=== PATIENT | male | born 1940 | race Caucasian/White ===

== ENCOUNTER 2024-11-04 09:57 | Inpatient (IN) | payer OTHER, MEDICARE, MEDICAID ==
[~2024-11-04] VITALS: Ht 182.9 cm; Wt 102.3 kg
[2024-11-04] VITALS (10 sets, daily range): BP systolic 119–140; BP diastolic 69–75; PULSE 82–101; RESP 17–20; TEMP 97.5–98.1; O2SAT 91–95
[~2024-11-04 09:57] MED LIST: ALBU6.7H14 INH; FLO0.4C PO; MOME13HF11 INH
--- NOTE | 2024-11-04 10:09 | ELECTROCARDIOGRAPH REPORT ---
[facility] Test Date: 2024-11-04 Test Time: 10:04:39 Pat Name: JOHN MARES Department: EMERGENCY ROOM Patient ID: [facility]-[id number] Room: [place] [address] Gender: M Channel Process Plant Operator: KH : [id number] Requested By: GLENIS PATEL Order Number: [id number] Reading MD: Dr. Doug De La Cruz Measurements Intervals Clyde Rate: 86 P: -7 WA: 223 QRS: 33 QRSD: 142 T: 29 QT: 376 QTc: 450 Interpretive Statements Sinus rhythm Prolonged WA interval Right bundle branch block Abnormal inferior Q waves Baseline wander in lead(s) V3 Electronically Signed On 11-13-2024 18:43:[address] Doug De La Cruz Please click the below link to view image of tracing.
[2024-11-04] MEDS ORDERED: furosemide 10 MG/1 ML 10ml inj IV ONE (10:15)
--- NOTE | 2024-11-04 10:15 | Physician Documentation ---
History of Present Illness ~ Stated Complaint: SOB Time Seen by MD: 10:11 Primary Medical Doctor: [place] THIS VERY PLEASANT 83-YEAR-OLD MALE WHO WAS AT HIS 1ST EV[address] SEGOVIA THIS MORNING WAS SENT HERE DUE TO INCREASING SHORTNESS OF BREATH AND LOWER EXTREMITY EDEMA. HAS NOT BEEN TREATED FOR CONGESTIVE HEART FAILURE PREVIOUSLY. DR. SARGENT ORDERED ECHOCARDIOGRAM WELL HOWEVER BASED ON PATIENT'S CURRENT COMPLAINT AND PRESENTATION HE RECOMMENDED THEY COME TO THE ER FOR EVALUATION Day of Onset: Nov 04, 2024 Medication Reconciliation Allergies: Coded Allergies: No Known Allergies (Unverified , 05/14/22) Scheduled Albuterol Sulfate (Proventil Hfa), 2 PUFFS INH Q6H Mometasone/Formoterol (Dulera 200 Mcg/5 Mcg Inhaler), 2 PUFFS INH Q12H, (Reported) Tamsulosin Hcl (Flomax), 2 CAP PO HS, (Reported) Past Medical History Patient History: Patient reports no known family medical history. Review of Systems All Other Systems at this time: Reviewed and Negative ROS As stated above in the HPI, otherwise all systems are reviewed and negative. Physical Exam Physical Exam General: Alert, no apparent distress. Respiratory: DIMINISHED WITH CRACKLES BILATERAL Chest: No accessory muscle use. Cardiovascular: Regular rate and rhythm, no murmurs. Extremities: 3+ PITTING EDEMA le BL Neurologic: Oriented x4. Psychiatric: Normal mood and affect. Skin: Normal color, warm and dry. No edema, no ecchymosis. Progress Results/Orders Results/Orders Completed Orders - MAURY CHAMPAGNE SERVICE LINE LAYER Furosemide Inj (Lasix Inj) (11/04/24 10:15) Furosemide 20mg Inj (Lasix Inj) (11/04/24 10:15) Vital Signs 11/04/24 10:10 Temp 97.6 Pulse 87 Resp 22 B/P (MAP) 154/75 Pulse Ox 95 O2 Flow Rate 0 Laboratory Tests Test 11/04/24 10:12 CBC Comment Chemistry Comments Medical Decision Making Findings 83-YEAR-OLD MALE CLEARLY PRESENTS WITH ALL THE CLINICAL INDICATIONS OF CHF EXACERBATION AND FLUID BUILDUP ALONG WITH A LIKELY ADVANCED HEART FAILURE. X-RAY IS NOTABLE FOR PULMONARY VASCULAR CONGESTION PER MY [facility] ADMISSION FOR DIURESIS, ECHOCARDIOGRAM AND FURTHER CARDIOLOGY EVALUATE Differential Dx:Considerations: Include: anxiety, asthma, bronchitis, cardiogenic shock, CHF, COPD, dysrhythmia, hypertension, accelerated, hypertension, essential, hypertension, malignant, hyperventilation, h yponatremia, myocardial infarction, panic attack, pneumonia, pneumonitis, pneumothorax, PSVT, pulmonary embolism, respiratory distress, respiratory failure, sinusitis, upper resp. infection, other Departure Disposition: ADMITTED INPATIENT Impression: Primary Impression: Acute on chronic systolic heart failure Referrals: NO PRIMARY CARE PROVIDER (PCP) Signature Scribe Signature: D Attestation: Scribed for Maury Champagne Compound Finisher by Maury Walker NP . 11/04/24 10:31 MAURY CHAMPAGNE NP Nov 04, 2024 10:15
[2024-11-04 10:27] LABS: BASOPHILS % (AUTO) 0.6 % (0-1); EOSINOPHILS # (AUTO) 0.1 X10'3 (0-0.9); EOSINOPHILS % (AUTO) 0.7 % (0-6); HEMATOCRIT 40.8 % (42.0-52.0); HEMOGLOBIN 13.9 g/dl (14.0-17.9); LYMPHOCYTES # (AUTO) 0.5 X10'3 (1.1-4.8); LYMPHOCYTES % (AUTO) 5.9 % (21-51); MEAN CORPUSCULAR HEMOGLOBIN 36.1 PG (27.0-31.0); MEAN CORPUSCULAR HGB CONC 34.1 g/dL (33.0-36.5); MEAN CORPUSCULAR VOLUME 106.1 FL (78-98); MEAN PLATELET VOLUME 6.8 FL (7.4-10.4); MONOCYTES # (AUTO) 0.6 X10'3 (0-0.9); MONOCYTES % (AUTO) 8.2 % (2-12); NEUTROPHILS # (AUTO) 6.6 X10'3 (1.8-7.7); NEUTROPHILS % (AUTO) 84.6 % (42-75); PLATELET COUNT 183 X10'3 (140-440); RED BLOOD COUNT 3.84 X10'6 (4.70-6.10); RED CELL DISTRIBUTION WIDTH 15.3 % (11.5-14.5); WHITE BLOOD COUNT 7.8 X10'3 (4.5-11.0)
--- NOTE | 2024-11-04 10:37 | RADIOLOGY REPORT ---
CHEST RADIOGRAPH Indication: sob with cough and congestion Technique: Frontal and lateral view of the chest was obtained Comparison: None FINDINGS: Lines and Tubes: None Lungs: Clear Pleura: No effusion. No pneumothorax. Bilateral pleural calcifications. Cardiomediastinal contours: Unremarkable Bones: Unremarkable IMPRESSION: No evidence of acute disease.
[2024-11-04] MEDS: furosemide 20 MG/2 ML vial IV ONE (10:39)
[2024-11-04 10:49] LABS: ALBUMIN 3.6 G/DL (3.4-5.0); ANION GAP 10 (8-16); BLOOD UREA NITROGEN 10 MG/DL (7-18); BUN/CREATININE RATIO 10.3 (10.0-20.0); CALCIUM 8.8 MG/DL (8.5-10.1); CHLORIDE 101 MMOL/L (99-107); CREATININE 0.97 MG/DL (0.60-1.10); GLUCOSE 116 MG/DL (70-104); POTASSIUM 4.5 MMOL/L (3.5-5.1); SODIUM 141 MMOL/L (135-145); eCRCL 64 ML/MIN; eGFR 74 ML/MIN
[2024-11-04] MEDS ORDERED: acetaminophen 325mg tablet PO PRN ×2 (10:50)
[2024-11-04] MEDS ORDERED: potassium Cl 20 mEq SR tablet PO PRN ×2 (10:50)
[2024-11-04] MEDS ORDERED: magnesium Cl slow-release 64mg tablet PO PRN (10:50)
[2024-11-04] MEDS ORDERED: potassium Cl 40MEQ/1/2NS 520ml 520 ML IV PRN (10:50)
[2024-11-04] MEDS ORDERED: magnesium sulf-water 2g/50mL 50 ML IV PRN (10:50)
[2024-11-04] MEDS ORDERED: magnesium sulf-water 4G/100mL 100 ML IV PRN (10:50)
[2024-11-04] MEDS ORDERED: CYAN500T71 PO (10:54)
[2024-11-04] MEDS ORDERED: UMEC1DIS INH (10:54)
[2024-11-04] MEDS ORDERED: FLUT1BLS14 INH (10:54)
[2024-11-04] MEDS ORDERED: FURO-150 PO (10:54)
[2024-11-04 11:55] LABS: PRO BRAIN NATRIURETIC PEPTIDE 99 PG/ML (0-450)
--- NOTE | 2024-11-04 11:56 | RADIOLOGY REPORT ---
Procedure: CT CT CHEST Reason for study/Clinical History: SOB Comparison Study: CT CHEST on DOS: 10/17/22 TECHNIQUE: Multidetector CT of the chest was performed from the lung apices to the upper abdomen with out the use of intravenous contract. Axial, coronal and sagittal multiplanar reformats were performed . Radiation Dose Information: CT Dose: CTDI volume is 18 mGy. Dose-length product is 714 mGy*cm The dose indicators for CT are the volume Computed Tomography (CT) Dose Index (CTDIvol) and the Dose Length Product (DLP), and are measured in units of mGy and mGy-cm, respectively. These indicators are not patient dose, but values generated from the CT scanner acquisition factors. The report includes radiation exposure data for exposures received during this examination. FINDINGS: Lower neck: Unremarkable. Lungs: No focal consolidation. No suspicious pulmonary nodule. Moderate centrilobular emphysema. Heart/Vascular Structures: Cardiomegaly. Coronary artery calcifications. Vascular calcifications of t he aorta. Lymph Nodes: No adenopathy Pleura: No pleural effusion or significant pneumothorax. Pleural calcifications are present which can be seen in prior asbestos exposure. Musculoskeletal: No acute osseous abnormality. Soft tissues: Normal. Upper abdomen: Subtle nodular contours to the liver may represent early changes of hepatic cirrhosis. IMPRESSION: No acute intrathoracic abnormality. Radiation optimization: All CT scans at this facility use at least one of these dose optimization ana hniques: automated exposure control mA and/or kV adjustment per patient size (includes targeted exam s where dose is matched to clinical indication) or iterative reconstruction.
--- NOTE | 2024-11-04 12:54 | HISTORY AND PHYSICAL-Residence ---
History & Physical Providers to CC Resident Creating Document: SHANNAN HARRIS, RES ~ History of Present Illness Primary Medical Doctor: [place]. Television Station Manager: Dr. De La Garza. Marketing Information Coordinator Dr. Up. Reason for Admit\Complaint: Shortness of breath History of Present Illness PCP: [place]. Television Station Manager: Dr. De La Garza. Marketing Information Coordinator Dr. Up. 83-year-old male patient with past medical history of BPH, COPD, basal cell carcinoma, came to the hospital with chief complaint of shortness of breaths. As per patient he has been experiencing shortness of breath for a few years, getting worse during the last two months and also noticed in worse lower extremities swelling. He normally is home independent, lately because of his shortness of breath he was able chest walk for 20 ft before getting short of breath. Associated to these symptom the patient also endorses dry cough which also has been getting worse during the last the patient currently denies any chest pain, palpitations, urinary or intestinal symptoms. Allergies: Coded Allergies: No Known Allergies (Unverified , 05/14/22) Home Medications Home Medications Active Proventil Hfa (Albuterol Sulfate) 6.7 Gm Hfa.aer.ad 2 Puffs INH Q6H Reported Lasix* (Furosemide) 20 Mg Tablet 1 Tab PO DAILY 30 Days Vitamin B-12* (Cyanocobalamin) 500 Mcg Tablet 1 Tab PO DAILY 30 Days Fluticasone-Salmeterol 500-50 (Fluticasone Propion/Salmeterol) 500 Mcg-50 Mcg/Dose Blst.w.dev 1 Puffs INH Q12H 30 Days Anoro Ellipta 62.5-25 Mcg INH (Umeclidinium Brm/Vilanterol Tr) 62.5 Mcg-25 Mcg/Actuation Disk.w.dev 1 Puffs INH DAILY 30 Days Flomax (Tamsulosin HCl) 0.4 Mg Cap.sr.24h 2 Cap PO HS Dulera 200 Mcg/5 Mcg Inhaler (Mometasone/Formoterol) 13 Gm Hfa.aer.ad 2 Puffs INH Q12H 30 Days Past Medical History Past Medical History BPH. COPD. Basal cell carcinoma s/p surgical removal. Past Surgical History Surgical History Comment Ventral abdominal hernia repair in 2014. 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 Family History Family History: Patient reports no known family medical history. Past Social History Smoking: Quit greater than 1 year (He quit smoking 10 years ago. He used to smoke 15 years at least one pack a day.) Alcohol Use: Heavy (As per patient he drinks four beers and four glasses of wine every day. For at least 65 years.) Drug Use: Methamphetamine (The patient does have history of methamphetamine use in the past.) Lives with: Other (Per patient lives with his friend in her house.) Lives In: Home Occupation: retired ROS All Other Systems: Reviewed and Negative Exam Vitals: Vital Signs Date Time Temp Pulse Resp B/P (MAP) Pulse Ox O2 Delivery O2 Flow Rate FiO2 11/04/24 12:45 97.6 82 20 119/69 (86) 94 Room Air 11/04/24 11:57 0 Physical exam: General: Well alert, well oriented, not confused, not agitated, not in acute distress, well cooperated during the physical. HEENT: Conjunctive are pink, sclerae clear, no icterus, pupil is equal in both sides, reactive to light, no ear discharge, no pharyngeal erythema or an edema. Neck: Supple, no JVD, no lymphadenopathy and thyromegaly. Chest: Diminished air entry bilaterally, presence of wheezing bilaterally. 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 Central Nervous System: No focal neurological deficits, no motor or sensory weakness in all 4 extremities, could move all 4 extremities, 2+ deep tendon reflexes, negative Babinski. Musculoskeletal: No other joint swelling, deformities, inflammations, and no scoliosis and back tenderness Skin: Warm and dry. Diagnostic Data Last Recorded Lab Results: 11/04/24 1012 11/04/24 1012 Advance Care Planning Advanced Care plannin - 30 Minutes (I spent a total of 17 minutes on reviewing various resuscitative measures/ACP with the patient at the time of admission. The patient has decided on a DNR code status.) Additional Plan Assessment and plan: 83-year-old male patient came to the hospital with chief complaint of shortness of breath and bilateral lower extremity edema. Shortness of breath: Acute exacerbation of COPD: Patient came to the hospital with chief complaint of shortness of breath. On physical exam wheezing is evidenced bilaterally. Chest x-ray: No evidence of acute disease. Chest CT scan: No acute intrathoracic abnormality. Eosinophils: 0.1. No indication for inhaled steroids. Ceftriaxone 1 g IV daily. Azithromycin 500 mg p.o. daily. Culturelle 15444 mg b.i.d. DuoNebs q.4h scheduled. DuoNeb q.2h PRN. Incentive spirometry every 2 hours while awake. Possible acute exacerbation of congestive heart failure: History of methamphetamine use: Patient came to the hospital with chief complaint of shortness of breaths mostly when he walks being able to walk for 20 ft. Before getting shortness of breath. On physical exam 3+ pedal edema is evidenced. Last echocardiogram in 05/18/2022: Showing LVEF of 60-65%, RVSP 25 mmHg. Follow-up echocardiogram. Follow-up proBNP. Lasix 20 mg IV b.i.d. Alcohol use disorder: History of methamphetamine use: The patient states that he has been drinking four beers and four glasses of wine every day for several years. Follow-up urine toxicology. Follow-up ethanol levels. services clerk consulted. SUN consulted. Alcohol withdrawal protocol in place. Macrocytic anemia: Hemoglobin 13.9, hematocrit 40.8, MCV 106.1. Follow-up vitamin B12. BPH: Tamsulosin 0.4 mg daily. Code status: DNR DVT prophylaxis: Heparin Analgesia/sedation: Haldol and lorazepam Line/tube: PIV GI prophylaxis: Protonix Nutrition: Heart healthy diet PT: Ordered Prognosis: Guarded Disposition: The patient will be admitted to PCU with telemetry. Shannan Fernandez Internal Medicine Resident [facility] Date of Service: Nov 04, 2024 Billing Provider: JANES DOZIER MD Common Visit Codes: 44604-[id number] INP/OBS CARE (HIGH) Secondary Visit Codes: 33015-[id number] CARE PLAN 30 MINUTES SHANNAN HARRIS, RES Nov 04, 2024 12:54 JANES DOZIER MD Nov 04, 2024 18:18
[2024-11-04] MEDS ORDERED: ipratropium/albuterol 3ml nebule NEB PRN (14:05)
[2024-11-04] MEDS ORDERED: LORazepam 2 mg/ml vial IV PRN ×2 (14:15→18:20)
[2024-11-04] MEDS ORDERED: LORazepam 1 MG tablet PO PRN (14:15)
[2024-11-04] MEDS ORDERED: haloperidol 5mg tablet PO PRN (14:15)
[2024-11-04] MEDS ORDERED: haloperidol lactate 5mg/ml inj IM PRN (14:15)
[2024-11-04] MEDS: CefTRIAXone/D5W-Rocephin 1gm 50 ML IV SCH (14:39)
[2024-11-04] MEDS: azithromycin 250mg tablet PO SCH (14:39)
[2024-11-04] MEDS: methylPREDNISolone sod succ 125mg/2ml vial IV ONE (14:39)
[2024-11-04 16:07] LABS: HEMOGLOBIN A1C 5.6 % (4.5-6.2)
[2024-11-04] MEDS: ipratropium/albuterol 3ml nebule NEB SCH (16:09)
[2024-11-04 16:12] LABS: CHOL/HDL RATIO 2.5 (0.00-4.99); CHOLESTEROL 215 MG/DL (0-200); HDL CHOLESTEROL 86 MG/DL (35-60); LDL CHOLESTEROL 102 MG/DL (50-100); THYROID STIMULATING HORMONE 0.61 ulU/ml (0.34-4.50); TRIGLYCERIDES 80 MG/DL (20-135)
--- NOTE | 2024-11-04 19:10 | CARDIOLOGY REPORT ---
APPROVED REPORT EXAM: Comprehensive 2D, Doppler, and color-flow Echocardiogram. Patient Location: [facility] Blood Pressure: 154/75 mmHg Heart Rate: 83 bpm Indications Congestive Heart Failure Shortness of Breath COPD Edema ROLLER MILL TENDER: Aydee De La Garza MD Previous ECHO: 05/17/22, [facility], EF: 60-65 2D Dimensions LA Diam2.7 cm IVSd 0.9 (0.7-1.1cm) LVDd 4.9 cm PWd 0.9 (0.7-1.1cm) IVSs 1.3 (0.8-1.2cm) LVDs 2.9 (2.5-4.0cm) PWs 1.3 (0.8-1.2cm) LVOT Diameter 2.21 (1.8-2.4cm) LVEF(%) 72.2 (>50%) IVC 14.82 mm FS (%) 41.5 % SV 80.4 ml CO 7.2 L/min M-Mode Dimensions Left Atrium(MM) 4.16 (2.5-4.0cm) Aortic Root 3.53 (2.2-3.7cm) Aortic Cusp Exc 1.37 (1.5-2.0cm) Aortic Valve AoV Peak Kael. 227.3 cm/s AoV VTI 40.8 cm AO Peak GR. 20.7 mmHg AO Mean GR. 12 mmHg LVOT VTI 30.44 cm LVOT Peak Kael. 129.8 cm/s JOSE(VTI)/BSA 2.88 cm2/m2 JOSE (VTI) 2.88 cm2 Mitral Valve MV E Velocity 77.8 cm/s MV Peak Gr. 4 mmHg MV DECEL TIME 304 ms MV A Velocity 114.6 cm/s MV PHT 88 ms E/A Ratio 0.7 MVA (PHT) 2.50 cm2 MV VMax95.8 cm/s TDI Lateral E' P. V10.47 cm/s E/Lateral E' 7.4 Tricuspid Valve TR P. Velocity 176 cm/s RAP ESTIMATE 10 mmHg TR Peak Gr. 12 mmHg RVSP 22 mmHg LEFT VENTRICLE Normal LV size and wall thickness. Overall systolic function is normal. LVEF is 70-75%. RIGHT VENTRICLE Right ventricle is mildly dilated with adequate function. ATRIA The left atrium size is normal. AORTIC VALVE Trileaflet AV appears mildly sclerotic without stenosis. No insufficiency. MITRAL VALVE Mild mitral annular calcification without stenosis. Trace regurgitation. TRICUSPID VALVE The tricuspid valve is normal in structure with trace regurgitation. PULMONIC VALVE Pulmonic valve is grossly normal in structure. GREAT VESSELS The aortic root is normal in size. The IVC is normal in size and collapses >50% with inspiration. PERICARDIUM Normal pericardium. No effusion. Anterior epicardial fat pad is present. Other Information Study Quality: Fair due to body habitus Conclusion Normal LV size and wall thickness. Overall systolic function is normal. LVEF is 70-75%. Right ventricle is mildly dilated with adequate function. The left atrium size is normal. Trileaflet AV appears mildly sclerotic without stenosis. No insufficiency. Mild mitral annular calcification without stenosis. Trace regurgitation. The tricuspid valve is normal in structure with trace regurgitation. Normal pericardium. No effusion. Anterior epicardial fat pad is present.
[2024-11-04] MEDS ORDERED: furosemide 40mg/4ml inj IV SCH (20:00)
[2024-11-04] MEDS ORDERED: methylPREDNISolone sod succ/PF 40mg inj. IV SCH (20:00)
[2024-11-04] MEDS: heparin, porcine 5000 units/ml vial SQ SCH (20:03)
[2024-11-04] MEDS: methylPREDNISolone sod succ/PF 40mg inj. IV SCH (20:04)
[2024-11-04] MEDS: thiamine 100mg/ml 2ml inj. IV SCH (20:04)
[2024-11-04] MEDS: lactobacillus rhamnosus 10,000 MMU CELLS/CAPSULE PO SCH (20:05)
[2024-11-04] MEDS: furosemide 20 MG/2 ML vial IV SCH (20:05)
[2024-11-05] VITALS (20 sets, daily range): BP systolic 123–144; BP diastolic 62–83; PULSE 82–97; RESP 16–24; TEMP 97.3–98.1; O2SAT 91–98
[2024-11-05 06:04] LABS: BASOPHILS % (AUTO) 0.3 % (0-1); EOSINOPHILS % (AUTO) 0 % (0-6); HEMATOCRIT 38.2 % (42.0-52.0); HEMOGLOBIN 13.2 g/dl (14.0-17.9); LYMPHOCYTES # (AUTO) 0.3 X10'3 (1.1-4.8); LYMPHOCYTES % (AUTO) 4.3 % (21-51); MEAN CORPUSCULAR HEMOGLOBIN 36.6 PG (27.0-31.0); MEAN CORPUSCULAR HGB CONC 34.4 g/dL (33.0-36.5); MEAN CORPUSCULAR VOLUME 106.4 FL (78-98); MEAN PLATELET VOLUME 7.2 FL (7.4-10.4); MONOCYTES # (AUTO) 0.1 X10'3 (0-0.9); MONOCYTES % (AUTO) 1.8 % (2-12); NEUTROPHILS # (AUTO) 6.4 X10'3 (1.8-7.7); NEUTROPHILS % (AUTO) 93.6 % (42-75); PLATELET COUNT 172 X10'3 (140-440); RED BLOOD COUNT 3.59 X10'6 (4.70-6.10); RED CELL DISTRIBUTION WIDTH 14.7 % (11.5-14.5); WHITE BLOOD COUNT 6.9 X10'3 (4.5-11.0)
[2024-11-05 06:17] LABS: ALANINE AMINOTRANSFERASE 45 U/L (12-78); ALBUMIN 3.1 G/DL (3.4-5.0); ALKALINE PHOSPHATASE 71 IU/L (46-116); ANION GAP 9 (8-16); ASPARTATE AMINO TRANSFERASE 20 U/L (10-37); BILIRUBIN,TOTAL 0.7 MG/DL (0.1-1.0); BLOOD UREA NITROGEN 20 MG/DL (7-18); BUN/CREATININE RATIO 16.7 (10.0-20.0); CALCIUM 8.9 MG/DL (8.5-10.1); CHLORIDE 101 MMOL/L (99-107); GLUCOSE 165 MG/DL (70-104); LIPASE 12 U/L (16-77); MAGNESIUM 1.8 MG/DL (1.5-2.4); PHOSPHORUS 4.5 MG/DL (2.3-4.5); POTASSIUM 4.2 MMOL/L (3.5-5.1); PRO BRAIN NATRIURETIC PEPTIDE 156 PG/ML (0-450); SODIUM 139 MMOL/L (135-145); TOTAL CARBON DIOXIDE 29.3 MMOL/L (24-32); TOTAL PROTEIN 6.3 G/DL (6.4-8.2); eCRCL 52 ML/MIN; eGFR 58 ML/MIN
[2024-11-05 06:19] LABS: PROTHROMBIN TIME 10.5 SECONDS (9.0-12.0)
[2024-11-05] MEDS: pantoprazole 40mg Tablet.DR PO SCH (07:48)
[2024-11-05] MEDS: multivitamins, therapeutics tablet PO SCH (07:48)
[2024-11-05] MEDS: folic acid 1mg/0.2ml inj IV SCH (07:49)
[2024-11-05] MEDS: cyanocobalamin 500mcg tablet PO SCH (08:12)
--- NOTE | 2024-11-05 18:03 | PROGRESS NOTE- Residence ---
Progress Note - Resident Providers to CC Resident Creating Document: MARTIN HARRIS, RES ~ Antibiotic Timeout Antibiotic Ordered?: Yes Subjective The patient has been evaluated at the bedside. The patient reports significant improvement of shortness of breaths. Endorses one bowel movement in the morning. Objective Vital Signs Date Time Temp Pulse Resp B/P (MAP) Pulse Ox O2 Delivery O2 Flow Rate FiO2 11/05/24 15:20 96 18 Room Air 0.0 11/05/24 15:19 96 21 11/05/24 11:00 98.1 128/64 (85) Physical exam: General: Well alert, well oriented, not confused, not agitated, not in acute distress, well cooperated during the physical. HEENT: Conjunctive are pink, sclerae clear, no icterus, pupil is equal in both sides, reactive to light, no ear discharge, no pharyngeal erythema or an edema. Neck: Supple, no JVD, no lymphadenopathy and thyromegaly. Chest: Diminished air entry bilaterally, decreased wheezing bilaterally, presence of rhonchus bilaterally. 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 Central Nervous System: No focal neurological deficits, no motor or sensory weakness in all 4 extremities, could move all 4 extremities, 2+ deep tendon reflexes, negative Babinski. Musculoskeletal: No other joint swelling, deformities, inflammations, and no scoliosis and back tenderness Skin: Warm and dry. Result Diagram: 11/05/24 0526 11/05/24 0526 Coagulation Studies Laboratory Tests Test 11/05/24 05:26 Prothrombin Time 10.5 SECONDS (9.0-12.0) INR International Normalized Ratio 1.0 INR Coagulation Comments Assessment Assessment 83-year-old male patient came to the hospital with chief complaint of shortness of breath and bilateral lower extremity edema. Plan Plan Shortness of breath: Acute exacerbation of COPD: Centrilobular emphysema: Patient came to the hospital with chief complaint of shortness of breath. On physical exam wheezing is evidenced bilaterally. Chest x-ray: No evidence of acute disease. Chest CT scan: No acute intrathoracic abnormality. Pleural calcifications are present which can be seen in prior asbestos exposure. Eosinophils: 0.1. No indication for inhaled steroids. Ceftriaxone 1 g IV daily. Day 2. Azithromycin 500 mg p.o. daily. Day 2. To be stopped tomorrow. Culturelle 69902 mg b.i.d. DuoNebs q.4h scheduled. DuoNeb q.2h PRN. Incentive spirometry every 2 hours while awake. The patient will require outpatient follow-up with trommel tender for incentive spirometry. Possible acute exacerbation of diastolic congestive heart failure-ruled out: History of methamphetamine use: Patient came to the hospital with chief complaint of shortness of breaths mostly when he walks being able to walk for 20 ft. Before getting shortness of breath. On physical exam 3+ pedal edema is evidenced. Last echocardiogram in 05/18/2022: Showing LVEF of 60-65%, RVSP 25 mmHg. Echocardiogram: Normal LV size and wall thickness. Overall systolic function is normal. LVEF is 70-75%. Right ventricle is mildly dilated with adequate function. The left atrium size is normal. Trileaflet AV appears mildly sclerotic without stenosis. No insufficiency.Mild mitral annular calcification without stenosis. Trace regurgitation. The tricuspid valve is normal in structure with trace regurgitation. Normal pericardium. No effusion. Anterior epicardial fat pad is present. ProBNP: 156. Furosemide 20 mg daily. Possible acute kidney injury likely secondary to dehydration: Creatinine 1.20, GFR 58, BUN/creatinine ratio 16.7. Follow-up urine lytes. Continue monitoring CMP. Alcohol use disorder: History of methamphetamine use: The patient states that he has been drinking four beers and four glasses of wine every day for several years. Follow-up urine toxicology. Follow-up ethanol levels. executive services administrator consulted. SUN consulted. Alcohol withdrawal protocol in place. Macrocytic anemia: Hemoglobin 13.9, hematocrit 40.8, MCV 106.1. Follow-up vitamin B12. Strong recommendation for alcohol cessation given. BPH: Tamsulosin 0.4 mg daily. Code status: DNR DVT prophylaxis: Heparin Analgesia/sedation: Ativan. Line/tube: PIV GI prophylaxis: Protonix Nutrition: Heart healthy diet PT: Ordered Prognosis: Guarded Disposition: We will continue medical therapy. Anticipated discharge tomorrow. Martin Fernandez Internal Medicine Resident [facility] Date of Service: Nov 05, 2024 Billing Provider: JANES DOZIER MD Common Visit Codes: [id number] INP/OBS CARE(HIGH) MARTIN HARRIS, RES Nov 05, 2024 18:03 JANES DOZIER MD Nov 05, 2024 18:28
[2024-11-05] MEDS: tamsulosin 0.4mg capsule PO SCH (21:01)
[2024-11-05] MEDS: LORazepam 1 MG tablet PO PRN (21:02)
[2024-11-05 21:34] LABS: OSMOLALITY UA 382 MOSM/K (50-1400)
[2024-11-05 21:41] LABS: SODIUM,URINE RANDOM < 15 MEQ/L; TOTAL PROTEIN,URINE RANDOM 11.6 MG/DL; URINE AMPHETAMINE SCREEN NEGATIVE (Neg); URINE BARBITUATE SCREEN NEGATIVE (Neg); URINE BENZODIAZEPINES SCREEN NEGATIVE (Neg); URINE CANNABINOID SCREEN NEGATIVE (Neg); URINE COCAINE SCREEN NEGATIVE (Neg); URINE METHADONE SCREEN NEGATIVE (Neg); URINE OPIATE SCREEN NEGATIVE (Neg); URINE PHENCYCLIDINE SCREEN NEGATIVE (Neg)
[2024-11-06] VITALS (20 sets, daily range): BP systolic 113–145; BP diastolic 71–84; PULSE 62–91; RESP 15–20; TEMP 97.4–98.3; O2SAT 89–96
[2024-11-06 06:38] LABS: BASOPHILS % (AUTO) 0.1 % (0-1); EOSINOPHILS % (AUTO) 0 % (0-6); HEMATOCRIT 39.1 % (42.0-52.0); HEMOGLOBIN 13.3 g/dl (14.0-17.9); LYMPHOCYTES # (AUTO) 0.3 X10'3 (1.1-4.8); LYMPHOCYTES % (AUTO) 4.2 % (21-51); MEAN CORPUSCULAR HEMOGLOBIN 36.3 PG (27.0-31.0); MEAN CORPUSCULAR HGB CONC 34.1 g/dL (33.0-36.5); MEAN CORPUSCULAR VOLUME 106.4 FL (78-98); MEAN PLATELET VOLUME 7.3 FL (7.4-10.4); MONOCYTES # (AUTO) 0.5 X10'3 (0-0.9); MONOCYTES % (AUTO) 5.7 % (2-12); NEUTROPHILS # (AUTO) 7.1 X10'3 (1.8-7.7); PLATELET COUNT 176 X10'3 (140-440); RED BLOOD COUNT 3.67 X10'6 (4.70-6.10); RED CELL DISTRIBUTION WIDTH 14.9 % (11.5-14.5); WHITE BLOOD COUNT 7.9 X10'3 (4.5-11.0)
[2024-11-06 06:40] LABS: PROTHROMBIN TIME 10.3 SECONDS (9.0-12.0)
[2024-11-06 06:53] LABS: ALANINE AMINOTRANSFERASE 39 U/L (12-78); ALBUMIN 3.2 G/DL (3.4-5.0); ALKALINE PHOSPHATASE 61 IU/L (46-116); ANION GAP 8 (8-16); ASPARTATE AMINO TRANSFERASE 17 U/L (10-37); BILIRUBIN,TOTAL 0.5 MG/DL (0.1-1.0); BLOOD UREA NITROGEN 25 MG/DL (7-18); BUN/CREATININE RATIO 21.7 (10.0-20.0); CHLORIDE 104 MMOL/L (99-107); CREATININE 1.15 MG/DL (0.60-1.10); GLUCOSE 151 MG/DL (70-104); LIPASE 10 U/L (16-77); MAGNESIUM 1.9 MG/DL (1.5-2.4); POTASSIUM 4.1 MMOL/L (3.5-5.1); SODIUM 141 MMOL/L (135-145); TOTAL CARBON DIOXIDE 29.2 MMOL/L (24-32); TOTAL PROTEIN 6.3 G/DL (6.4-8.2); eCRCL 54 ML/MIN; eGFR 61 ML/MIN
[2024-11-06 07:00] LABS: CALCIUM 8.6 MG/DL (8.5-10.1)
[2024-11-06] MEDS: furosemide 20 MG/2 ML vial IV SCH (07:19)
[2024-11-06] MEDS: guaiFENesin ER 600mg tablet PO SCH (12:09)
--- NOTE | 2024-11-06 13:50 | PROGRESS NOTE- Residence ---
Progress Note - Resident Providers to CC Resident Creating Document: MARTIN HARRIS, BLAIR ~ Antibiotic Timeout Antibiotic Ordered?: Yes Subjective The patient has been evaluated at the bedside. The patient reports improvement of shortness of breath and bilateral lower extremity swelling. Objective Vital Signs Date Time Temp Pulse Resp B/P (MAP) Pulse Ox O2 Delivery O2 Flow Rate FiO2 11/06/24 11:00 98.0 86 16 132/74 (93) 94 Room Air 11/06/24 10:47 0.0 11/06/24 10:40 21 Physical exam: General: Well alert, well oriented, not confused, not agitated, not in acute distress, well cooperated during the physical. HEENT: Conjunctive are pink, sclerae clear, no icterus, pupil is equal in both sides, reactive to light, no ear discharge, no pharyngeal erythema or an edema. Neck: Supple, no JVD, no lymphadenopathy and thyromegaly. Chest: Diminished air entry bilaterally, mild wheezing bilaterally, presence of rhonchus bilaterally. Cardiovascular: S1-S2 regular sinus rhythm and, regular rate, no gallops, no rubs, no murmurs Abdomen: No visible peristalsis, Bowel sounds present on auscultation, soft, nontender, no guarding, no rigidity Extremities: No obvious deformities, 2+ pedal edema, capillary refill intact, peripheral pulsations are intact on both sides, absence of 2nd and 3rd distal phalanges in the right hand. 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 Central Nervous System: No focal neurological deficits, no motor or sensory weakness in all 4 extremities, could move all 4 extremities, 2+ deep tendon reflexes, negative Babinski. Musculoskeletal: No other joint swelling, deformities, inflammations, and no scoliosis and back tenderness Skin: Warm and dry. Result Diagram: 11/06/24 0600 11/06/24 0600 Coagulation Studies Laboratory Tests Test 11/06/24 06:00 Prothrombin Time 10.3 SECONDS (9.0-12.0) INR International Normalized Ratio 1.0 INR Coagulation Comments Assessment Assessment 83-year-old male patient came to the hospital with chief complaint of shortness of breath and bilateral lower extremity edema. Plan Plan Shortness of breath: Acute exacerbation of COPD: Centrilobular emphysema: Patient came to the hospital with chief complaint of shortness of breath. On physical exam wheezing is evidenced bilaterally. Chest x-ray: No evidence of acute disease. Chest CT scan: No acute intrathoracic abnormality. Pleural calcifications are present which can be seen in prior asbestos exposure. Eosinophils: 0.1. No indication for inhaled steroids. Ceftriaxone 1 g IV daily. Day 2. Azithromycin 500 mg p.o. daily. Day 2. To be stopped tomorrow. Culturelle 06907 mg b.i.d. DuoNebs q.4h scheduled. DuoNeb q.2h PRN. Incentive spirometry every 2 hours while awake. The patient will require outpatient follow-up with delicate fabrics presser for incentive spirometry. 11/08/2024: Completed course of azithromycin. Continue ceftriaxone 1 g IV daily. Day 3. Continue Culturelle 64819 mmu b.i.d. continue DuoNebs q.4h scheduled, DuoNeb q.2h PRN. Methylprednisolone 30 mg IV b.i.d. Possible acute exacerbation of diastolic congestive heart failure-ruled out: History of methamphetamine use: Patient came to the hospital with chief complaint of shortness of breaths mostly when he walks being able to walk for 20 ft. Before getting shortness of breath. On physical exam 3+ pedal edema is evidenced. Last echocardiogram in 05/18/2022: Showing LVEF of 60-65%, RVSP 25 mmHg. Echocardiogram: Normal LV size and wall thickness. Overall systolic function is normal. LVEF is 70-75%. Right ventricle is mildly dilated with adequate function. The left atrium size is normal. Trileaflet AV appears mildly sclerotic without stenosis. No insufficiency.Mild mitral annular calcification without stenosis. Trace regurgitation. The tricuspid valve is normal in structure with trace regurgitation. Normal pericardium. No effusion. Anterior epicardial fat pad is present. ProBNP: 156. Furosemide 20 mg IV daily. 11/06/2024: Continue furosemide 20 mg IV daily. Possible acute kidney injury likely secondary to dehydration: Creatinine 1.20, GFR 58, BUN/creatinine ratio 16.7. Follow-up urine lytes. Continue monitoring CMP. 11/06/2024: BUN/creatinine ratio 21.7, fractional excretion of sodium: 0.1%: Likely prerenal. Alcohol use disorder: History of methamphetamine use: The patient states that he has been drinking four beers and four glasses of wine every day for several years. Follow-up urine toxicology. Follow-up ethanol levels. food services manager consulted. SUN consulted. Alcohol withdrawal protocol in place. 11/06/2024: food services manager evaluated the patient. The patient states that he does drink but it is not a problem. Continue thiamine and folic acid. Macrocytic anemia: Hemoglobin 13.9, hematocrit 40.8, MCV 106.1. Vitamin B12 within reference range. Strong recommendation for alcohol cessation given. On cyanocobalamin 500 mcg daily. BPH: Tamsulosin 0.4 mg daily. Code status: DNR DVT prophylaxis: Heparin Analgesia/sedation: Ativan. Line/tube: PIV GI prophylaxis: Protonix Nutrition: Heart healthy diet PT: Home independent patient. Prognosis: Guarded Disposition: We will continue medical therapy. Anticipated discharge tomorrow. Martin Fernandez Internal Medicine Resident [facility] Date of Service: Nov 06, 2024 Billing Provider: ROMY CRABTREE MD Common Visit Codes: [id number] INP/OBS CARE(HIGH) MARTIN HARRIS, RES Nov 06, 2024 13:50 ROMY CRABTREE MD Nov 06, 2024 21:24
[2024-11-06] MEDS: docusate sod 100mg capsule PO SCH (16:06)
[2024-11-06] MEDS: methylPREDNISolone sod succ/PF 40mg inj. IV SCH (22:13)
[2024-11-07] VITALS (10 sets, daily range): BP systolic 123–136; BP diastolic 76–79; PULSE 75–87; RESP 18–22; TEMP 97.5–97.6; O2SAT 91–97
[2024-11-07 07:25] LABS: BASOPHILS % (AUTO) 0.2 % (0-1); EOSINOPHILS % (AUTO) 0 % (0-6); HEMATOCRIT 39.6 % (42.0-52.0); HEMOGLOBIN 13.7 g/dl (14.0-17.9); LYMPHOCYTES # (AUTO) 0.4 X10'3 (1.1-4.8); MEAN CORPUSCULAR HEMOGLOBIN 36.6 PG (27.0-31.0); MEAN CORPUSCULAR HGB CONC 34.7 g/dL (33.0-36.5); MEAN CORPUSCULAR VOLUME 105.7 FL (78-98); MEAN PLATELET VOLUME 7.4 FL (7.4-10.4); MONOCYTES # (AUTO) 0.6 X10'3 (0-0.9); MONOCYTES % (AUTO) 5.8 % (2-12); NEUTROPHILS # (AUTO) 8.6 X10'3 (1.8-7.7); PLATELET COUNT 198 X10'3 (140-440); RED BLOOD COUNT 3.75 X10'6 (4.70-6.10); RED CELL DISTRIBUTION WIDTH 15.1 % (11.5-14.5); WHITE BLOOD COUNT 9.6 X10'3 (4.5-11.0)
[2024-11-07 07:31] LABS: PROTHROMBIN TIME 10.2 SECONDS (9.0-12.0)
[2024-11-07 07:37] LABS: ALANINE AMINOTRANSFERASE 39 U/L (12-78); ALBUMIN 3.4 G/DL (3.4-5.0); ALBUMIN/GLOBULIN RATIO 1.2 (1.1-1.5); ALKALINE PHOSPHATASE 60 IU/L (46-116); ANION GAP 7 (8-16); ASPARTATE AMINO TRANSFERASE 21 U/L (10-37); BILIRUBIN,TOTAL 0.6 MG/DL (0.1-1.0); BLOOD UREA NITROGEN 30 MG/DL (7-18); BUN/CREATININE RATIO 22.2 (10.0-20.0); CALCIUM 8.7 MG/DL (8.5-10.1); CHLORIDE 101 MMOL/L (99-107); CREATININE 1.35 MG/DL (0.60-1.10); GLUCOSE 141 MG/DL (70-104); LIPASE 12 U/L (16-77); PHOSPHORUS 4.6 MG/DL (2.3-4.5); POTASSIUM 4.3 MMOL/L (3.5-5.1); SODIUM 136 MMOL/L (135-145); TOTAL PROTEIN 6.3 G/DL (6.4-8.2); eCRCL 46 ML/MIN; eGFR 51 ML/MIN
[2024-11-07] MEDS ORDERED: IPRA3AMP9 NEB (09:26)
[2024-11-07] MEDS ORDERED: PRED10TA23 PO (12:43)
[2024-11-07] MEDS ORDERED: FURO-150 PO (12:43)
[2024-11-07] MEDS ORDERED: ALBU2.5V7 NEB (12:43)
[2024-11-07] MEDS ORDERED: MULT-25 PO (12:43)
[2024-11-07] MEDS ORDERED: GUAI600T45 PO (12:43)
[2024-11-07] MEDS ORDERED: LACT1CAP26 PO (12:43)
[2024-11-07] MEDS: metoclopramide 5 mg/ml inj IV PRN (13:49)
[2024-11-07] MEDS: ondansetron/PF 4mg/2ml inj IV PRN (13:52)
--- NOTE | 2024-11-07 14:52 | RADIOLOGY REPORT ---
Procedure: DI CHEST,SINGLE VIEW Exam Date: 11/07/2024 01:38 PM History: SOB Comparison Study: CHEST,SINGLE VIEW on DOS: 10/17/22, CHEST,SINGLE VIEW on DOS: 05/14/22 Technique: AP of the chest AP upright of the abdomen AP supine of the abdomen FINDINGS: Patchy bilateral airspace disease. The cardiomediastinal silhouette is within normal limits. No acu te osseous lesions. Nonspecific bowel-gas pattern. There is no evidence for pneumoperitoneum. No abnormal calcifications noted. IMPRESSION: Non-specific gas-filled loops of bowel. Patchy bilateral airspace disease
[2024-11-07] MEDS ORDERED: METO5TAB98 PO (15:09)
[2024-11-07] MEDS ORDERED: TEMA15CA5 PO (15:09)
[2024-11-07] MEDS: normal saline 500ml IV soln 500 ML IV SCH (16:07)
[2024-11-07] MEDS: magnesium citrate 296ml oral solution PO ONE (16:32)
[2024-11-07] MEDS: proCHLORperazine 10 MG/2 ml inj IV PRN (16:50)
--- NOTE | 2024-11-07 18:32 | DISCHARGE SUMMARY-Residence ---
Discharge Summary Providers to CC Resident Creating Document: NGUYEN HERCULES RES ~ Discharge Summary Admission Diagnosis: acute on chronic CHF , Hospital Course DATE OF ADMISSION: 11/04/24 DATE OF DISCHARGE: 11/07/24 Discharge Diagnosis\Comment: Acute exacerbation of COPD - Centrilobular emphysema, Acute kidney injury likely secondary to vasomotor nephropathy Acute exacerbation of CHF with preserved EF History of Alcohol use disorder History of Macrocytic anemia History of BPH History of Basal cell carcinoma s/p surgical removal. Operations\Procedures: None Consultants: None Complications: None Condition on DC: Stable New Medications: Albuterol Sulfate (Albuterol Sulfate) 2.5 Mg/3 Ml Vial.neb 1 VIAL NEB Q4HPRN PRN for wheezing, #30 VIAL 1 Refill Ipratropium/Albuterol Sulfate (IPRAT-ALBUT 0.5-3(2.5) MG/3 ML nebule) 0.5 Mg-3 Mg (2.5 Mg Base)/3 Ml Ampul.neb 1 VIAL NEB Q6H PRN for SOB or wheezing for 30 Days, #1 INHALER 0 Refills Metoclopramide Hcl* (Reglan*) 5 Mg Tablet 1 TAB PO Q6H, #20 TAB Prednisone (Prednisone) 10 Mg Tablet 0 PO DAILY, #42 TAB Take 4 tabs daily x4 days, then 3 daily x4 days 2 daily x4 days 1 daily x4 days 1/2 daily x4 days then STOP Temazepam (Restoril) 15 Mg Capsule 1 CAP PO HSPRN PRN for sleep for 30 Days, #30 CAP 0 Refills Guaifenesin (Mucinex) 600 Mg Tablet.sa 1200 MG PO Q12H, #20 TAB.SR Lactobacillus Rhamnosus (Culturelle) 10 Billion Cell Capsule 54555 MMU PO BID, #30 CAP Multivitamin with Folic Acid (Thera Tablet) 400 Mcg Tablet 1 EACH PO Q24H, #30 TAB Changed Medications: Furosemide* (Lasix*) 20 Mg Tablet 1 TAB PO BID for 30 Days, #60 TAB (Changed from: DAILY; 30) Continued Medications: Albuterol Sulfate (Proventil Hfa) 6.7 Gm Hfa.aer.ad 2 PUFFS INH Q6H, #1 INHALER Cyanocobalamin* (Vitamin B-12*) 500 Mcg Tablet 1 TAB PO DAILY for 30 Days, #30 TAB Fluticasone Propion/Salmeterol (Fluticasone-Salmeterol 500-50) 500 Mcg-50 Mcg/Dose Blst.w.dev 1 PUFFS INH Q12H for 30 Days, #60 EA 0 Refills Mometasone/Formoterol (Dulera 200 Mcg/5 Mcg Inhaler) 13 Gm Hfa.aer.ad 2 PUFFS INH Q12H for 30 Days, #13 GM Tamsulosin Hcl (Flomax) 0.4 Mg Cap.sr.24h 2 CAP PO HS, CAP.SR Umeclidinium Brm/Vilanterol Tr (Anoro Ellipta 62.5-25 Mcg INH) 62.5 Mcg-25 Mcg/Actuation Disk.w.dev 1 PUFFS INH DAILY for 30 Days, #1 EA 0 Refills Discharge Summary: As per HABEMATOLEL: 83-year-old male patient with past medical history of BPH, COPD, ba keon cell carcinoma, came to the hospital with chief complaint of shortness of breaths. As per patient he has been experiencing shortness of breath for a few years, getting worse during the last two months and also noticed in worse lower extremities swelling. He normally is home independent, lately because of his shortness of breath he was able chest walk for 20 ft before getting short of breath. Associated to these symptom the patient also endorses dry cough which also has been getting worse during the last the patient currently denies any chest pain, palpitations, urinary or intestinal symptoms. Hospital Course: Upon further evaluation, he was found to have an acute COPD exacerbation superimposed on centrilobular emphysema, for which he received ceftriaxone 1g IV daily and azithromycin 500 mg PO daily, methylprednisolone 30 mg IV BID, scheduled albuterol/ipratropium nebulizers and incentive spirometry every 2 hours. Chest X-ray and CT chest showed no acute intrathoracic pathologies; only pleural calcifications consistent with prior asbestos exposure. Likely CHF with preserved EF, started on IV furosemide 20mg daily achieved effective diuresis, resolving his bilateral lower-extremity edema. A transient pre-renal LARISA was managed with IV fluids, which has improved. Transthoracic ECHO showed preserved LVEF (70-75%). His alcohol use disorder was addressed with social-work consultations, alcohol withdrawal protocol, and continuation of thiamine and folic acid. His macrocytic anemia was managed with cyanocobalamin supplementation. Tamsulosin 0.4 mg PO daily was continued. He remained hemodynamically stable, with normalization of renal function. His dyspnea improved, and is being discharged to follow up with pulmonology outpatient. This morning he started complaining of bloating and discomfort in the belly, x-ray of the abdomen done shows nonspecific bowel gas pattern. Started Reglan, eventually had a bowel movement NS symptoms improved. His hospital course is uncomplicated he is hemodynamically stable on the day of discharge and his physical exam is as follows: Physical exam at discharge: General: Well alert, well oriented, not confused, not agitated, not in acute distress, well cooperated during the physical. HEENT: Conjunctive are pink, sclerae clear, no icterus, pupil is equal in both sides, reactive to light, no ear discharge, no pharyngeal erythema or an edema. Neck: Supple, no JVD, no lymphadenopathy and thyromegaly. Chest: Diminished air entry bilaterally, mild wheezing bilaterally, presence of rhonchus bilaterally. Cardiovascular: S1-S2 regular sinus rhythm and, regular rate, no gallops, no rubs, no murmurs Abdomen: No visible peristalsis, Bowel sounds present on auscultation, soft, nontender, no guarding, no rigidity Extremities: No obvious deformities, 2+ pedal edema, capillary refill intact, peripheral pulsations are intact on both sides, absence of 2nd and 3rd distal ph alanges in the right hand. 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 Central Nervous System: No focal neurological deficits, no motor or sensory weakness in all 4 extremities, could move all 4 extremities, 2+ deep tendon reflexes, negative Babinski. Musculoskeletal: No other joint swelling, deformities, inflammations, and no scoliosis and back tenderness Skin: Warm and dry. Discharge medications can be found above. Patient is being discharged home with the following advice: Follow up with Dr. Up's office within a week. Call them and schedule appointment. Continue taking the above mentioned meds. If condition worsens, call 911 or go to the nearest ER immediately. Laboratory Tests Test 11/05/24 20:38 11/05/24 21:00 11/06/24 06:00 11/07/24 06:30 Glucometer 185 mg/dl Urine Eosinophils No eos /HPF Urine Osmolality 382 MOSM/K Urine Random Creatinine 105.0 MG/DL Urine Random Total Protein 11.6 MG/DL Urine Random Sodium < 15 MEQ/L Urine Random Urea 701.0 MG/DL Urine Opiates Screen Negative Urine Methadone Screen Negative Urine Fentanyl Screen Negative Urine Barbiturates Screen Negative Urine Phencyclidine Screen Negative Urine Amphetamines Screen Negative Urine Benzodiazepines Screen Negative Urine Cocaine Screen Negative Urine Cannabinoids Screen Negative Drug Screen Comment White Blood Count 7.9 X10'3 9.6 X10'3 Red Blood Count 3.67 X10'6 3.75 X10'6 Hemoglobin 13.3 g/dl 13.7 g/dl Hematocrit 39.1 % 39.6 % Mean Corpuscular Volume 106.4 FL 105.7 FL Mean Corpuscular Hemoglobin 36.3 PG 36.6 PG Mean Corpuscular Hemoglobin Concent 34.1 g/dL 34.7 g/dL Red Cell Distribution Width 14.9 % 15.1 % Platelet Count 176 X10'3 198 X10'3 Mean Platelet Volume 7.3 FL 7.4 FL Neutrophils (%) (Auto) 90.0 % 90.0 % Lymphocytes (%) (Auto) 4.2 % 4.0 % Monocytes (%) (Auto) 5.7 % 5.8 % Eosinophils (%) (Auto) 0 % 0 % Basophils (%) (Auto) 0.1 % 0.2 % Neutrophils # (Auto) 7.1 X10'3 8.6 X10'3 Lymphocytes # (Auto) 0.3 X10'3 0.4 X10'3 Monocytes # (Auto) 0.5 X10'3 0.6 X10'3 Eosinophils # (Auto) 0.0 X10'3 0.0 X10'3 Basophils # (Auto) 0.0 X10'3 0.0 X10'3 CBC Comment Prothrombin Time 10.3 SECONDS 10.2 SECONDS INR International Normalized Ratio 1.0 INR 1.0 INR Coagulation Comments Sodium Level 141 MMOL/L 136 MMOL/L Potassium Level 4.1 MMOL/L 4.3 MMOL/L Chloride Level 104 MMOL/L 101 MMOL/L Carbon Dioxide Level 29.2 MMOL/L 28.0 MMOL/L Anion Gap 8 7 Blood Urea Nitrogen 25 MG/DL 30 MG/DL Creatinine 1.15 MG/DL 1.35 MG/DL Estimated GFR/1.73 m2 61 ML/MIN 51 ML/MIN BUN/Creatinine Ratio 21.7 22.2 Glucose Level 151 MG/DL 141 MG/DL Calcium Level 8.6 MG/DL 8.7 MG/DL Phosphorus Level 4.0 MG/DL 4.6 MG/DL Magnesium Level 1.9 MG/DL 2.0 MG/DL Total Bilirubin 0.5 MG/DL 0.6 MG/DL Aspartate Amino Transf (AST/SGOT) 17 U/L 21 U/L Alanine Aminotransferase (ALT/SGPT) 39 U/L 39 U/L Alkaline Phosphatase 61 IU/L 60 IU/L Total Protein 6.3 G/DL 6.3 G/DL Albumin 3.2 G/DL 3.4 G/DL Globulin 3.1 G/DL 2.9 G/DL Albumin/Globulin Ratio 1.0 1.2 Lipase 10 U/L 12 U/L Chemistry Comments *Problems/Diagnosis: (1) Chronic obstructive pulmonary disease with acute exacerbation Status: Acute Total Time Spent on D/C: Up to 30 Minutes Counseling Services Smoking & Tobacco Cessation: 3-10 Minutes Date of Service: Nov 07, 2024 Billing Provider: ROMY CRABTREE MD Common Visit Codes: [id number] DISCH DAY >30min NGUYEN HERCULES, RES Nov 07, 2024 17:57 ROMY CRABTREE MD Nov 08, 2024 09:12
[2024-11-08] MEDS ORDERED: thiamine 100mg tablet PO SCH (08:00)
[2024-11-08] MEDS ORDERED: folic acid 1mg tablet PO SCH (08:00)
== END 2024-11-07 19:00 | disposition home or self-care (01) | DRG 291 ==
LOC: ER 09:58 → ED HOLD 10:51 → PCU 3S 12:28
PROVIDERS: ADMIT Internal Medicine; ATTEND Internal Medicine
DX: I50.23 Acute on chronic systolic (congestive) heart failure (principal); N17.0 Acute kidney failure with tubular necrosis; J44.1 Chronic obstructive pulmonary disease with (acute) exacerbation; J43.2 Centrilobular emphysema; Z66 Do not resuscitate; N40.0 Benign prostatic hyperplasia without lower urinary tract symptoms; D53.9 Nutritional anemia, unspecified
CPT/HCPCS: 36415; 71045; 71046; 71250; 74018; 80048; 80053; 80061; 80305; 82570; 82607; 82948; 83036; 83690; 83735; 83880; 83930; 83935; 84100; 84156; 84300; 84443; 84484; 84540; 85025; 85610; 87081; 87207; 93005; 93306; 94640; 94760; 96365; 96372; 96375; 97161; 97530; 99285; G0378; J0696; J0780; J1644; J1938; J2405; J2765; J2919; J3411; J3490; J7040

== ENCOUNTER 2024-11-08 00:41 | Inpatient (IN) | payer OTHER, MEDICARE, MEDICAID ==
[~2024-11-08] VITALS: Ht 182.9 cm; Wt 100.0 kg
[2024-11-08] VITALS (15 sets, daily range): BP systolic 113–127; BP diastolic 64–72; PULSE 73–90; RESP 16–22; TEMP 97.4–98.6; O2SAT 87–97
[~2024-11-08 00:41] MED LIST changes: +ALBU2.5V7 NEB; +CYAN500T71 PO; +FLUT1BLS14 INH; +FURO-150 PO; +GUAI600T45 PO; +IPRA3AMP9 NEB; +LACT1CAP26 PO; +METO5TAB98 PO; +MULT-25 PO; +PRED10TA23 PO; +TEMA15CA5 PO; +UMEC1DIS INH
--- NOTE | 2024-11-08 01:39 | ELECTROCARDIOGRAPH REPORT ---
[facility] Test Date: 2024-11-08 Test Time: 01:36:12 Pat Name: JOHN MARES Department: [facility]-ER Patient ID: [facility]-[id number] Room: Gender: M [employer]: : 1940 Requested By: GLENIS PATEL Order Number: [id number] Reading MD: Measurements Intervals [place] Rate: 81 P: 34 FL: 282 QRS: 17 QRSD: 144 T: 92 QT: 448 QTc: 520 Interpretive Statements Sinus rhythm Prolonged FL interval SACHA, consider biatrial enlargement Right bundle branch block Please click the below link to view image of tracing.
[2024-11-08 02:04] LABS: BASOPHILS % (AUTO) 0.1 % (0-1); EOSINOPHILS % (AUTO) 0 % (0-6); HEMATOCRIT 42.6 % (42.0-52.0); HEMOGLOBIN 14.8 g/dl (14.0-17.9); LYMPHOCYTES # (AUTO) 0.5 X10'3 (1.1-4.8); LYMPHOCYTES % (AUTO) 4.7 % (21-51); MEAN CORPUSCULAR HEMOGLOBIN 36.8 PG (27.0-31.0); MEAN CORPUSCULAR HGB CONC 34.7 g/dL (33.0-36.5); MEAN CORPUSCULAR VOLUME 106.2 FL (78-98); MEAN PLATELET VOLUME 7.2 FL (7.4-10.4); MONOCYTES # (AUTO) 1.4 X10'3 (0-0.9); MONOCYTES % (AUTO) 12.8 % (2-12); NEUTROPHILS # (AUTO) 8.9 X10'3 (1.8-7.7); NEUTROPHILS % (AUTO) 82.4 % (42-75); PLATELET COUNT 183 X10'3 (140-440); RED BLOOD COUNT 4.01 X10'6 (4.70-6.10); RED CELL DISTRIBUTION WIDTH 14.6 % (11.5-14.5); WHITE BLOOD COUNT 10.8 X10'3 (4.5-11.0)
[2024-11-08 02:11] LABS: ALANINE AMINOTRANSFERASE 44 U/L (12-78); ALBUMIN 3.6 G/DL (3.4-5.0); ALBUMIN/GLOBULIN RATIO 1.1 (1.1-1.5); ALKALINE PHOSPHATASE 66 IU/L (46-116); ANION GAP 5 (8-16); BILIRUBIN,TOTAL 0.9 MG/DL (0.1-1.0); BLOOD UREA NITROGEN 36 MG/DL (7-18); BUN/CREATININE RATIO 29.3 (10.0-20.0); CHLORIDE 99 MMOL/L (99-107); CREATININE 1.23 MG/DL (0.60-1.10); GLUCOSE 133 MG/DL (70-104); LIPASE 16 U/L (16-77); SODIUM 134 MMOL/L (135-145); TOTAL CARBON DIOXIDE 30.3 MMOL/L (24-32); TOTAL PROTEIN 6.8 G/DL (6.4-8.2); eCRCL 51 ML/MIN; eGFR 56 ML/MIN
[2024-11-08 02:16] LABS: ASPARTATE AMINO TRANSFERASE 32 U/L (10-37); POTASSIUM 4.3 MMOL/L (3.5-5.1)
--- NOTE | 2024-11-08 02:19 | RADIOLOGY REPORT ---
CHEST RADIOGRAPH Indication: CP Technique: Single frontal view of the chest was obtained COMPARISON: DI CHEST,SINGLE VIEW on DOS: 11/07/24, CHEST,SINGLE VIEW on DOS: 10/17/22, CHEST,SINGLE VIE W on DOS: 05/14/22 FINDINGS: Lines and Tubes: None Lungs: Stable appearing patchy multifocal bilateral pulmonary airspace disease. Pleura: No effusion. No pneumothorax. Cardiomediastinal contours: Unremarkable Bones: Unremarkable IMPRESSION: 1. Stable patchy multifocal bilateral pulmonary airspace disease.
[2024-11-08] MEDS: ondansetron/PF 4mg/2ml inj IV ONE (02:27)
[2024-11-08 02:41] LABS: BILIRUBIN,URINE NEGATIVE (Neg); CLARITY,URINE CLEAR (Clear); COLOR,URINE YELLOW (Yellow); GLUCOSE, URINE NEGATIVE (Neg); KETONES,URINE NEGATIVE (Neg); LEUKOCYTE ESTERASE ,URINE NEGATIVE (Neg); NITRITES, URINE NEGATIVE (Neg); OCCULT BLOOD,URINE NEGATIVE (Neg); PROTEIN,URINE NEGATIVE (Neg); UROBILINOGEN,URINE 0.2 E.U/dL (0.2-1.0)
[2024-11-08 02:43] LABS: UA COLLECTION TYPE URINAL
--- NOTE | 2024-11-08 02:51 | Physician Documentation ---
History of Present Illness ~ Chief Complaint: Vomiting Stated Complaint: BOWEL ISSUES Time Seen by MD: 02:51 Primary Medical Doctor: [facility] [facility]. Administrative Assistant Coordinator: Dr. De La Garza. Paint Trimmer Pipe Bowls Dr. Up. Mode of Arrival: POV HPI 83-year-old male, history of COPD, presenting with abdominal pain and vomiting. The patient was recently admitted to the hospital for COPD exacerbation. He was discharged from the hospital yesterday. Since that time he has had gradually worsening abdominal distention and vomiting. He has been vomiting all day. His daughter says that he has vomited at least a couple of L of fluid, which is now dark brown. No fevers. No diarrhea. No dysuria. He is urinating less than normal. They feel like his breathing is actually doing pretty good. His legs are less swollen than normal. Medication Reconciliation Allergies: Coded Allergies: No Known Allergies (Unverified , 11/08/24) Scheduled Albuterol Sulfate (Proventil Hfa), 2 PUFFS INH Q6H Cyanocobalamin* (Vitamin B-12*), 1 TAB PO DAILY, (Reported) Fluticasone Propion/Salmeterol (Fluticasone-Salmeterol 500-50), 1 PUFFS INH Q12H, (Reported) Furosemide* (Lasix*), 1 TAB PO BID Guaifenesin (Mucinex), 1,200 MG PO Q12H Lactobacillus Rhamnosus (Culturelle), 10,000 MMU PO BID Metoclopramide Hcl* (Reglan*), 1 TAB PO Q6H Mometasone/Formoterol (Dulera 200 Mcg/5 Mcg Inhaler), 2 PUFFS INH Q12H, (Reported) Multivitamin with Folic Acid (Thera Tablet), 1 EACH PO Q24H Prednisone (Prednisone), 0 PO DAILY Tamsulosin Hcl (Flomax), 2 CAP PO HS, (Reported) Umeclidinium Brm/Vilanterol Tr (Anoro Ellipta 62.5-25 Mcg INH), 1 PUFFS INH DAILY, (Reported) Scheduled PRN Albuterol Sulfate (Albuterol Sulfate), 1 VIAL NEB Q4HPRN PRN for wheezing Ipratropium/Albuterol Sulfate (IPRAT-ALBUT 0.5-3(2.5) MG/3 ML nebule), 1 VIAL NEB Q6H PRN for SOB or wheezing Temazepam (Restoril), 1 CAP PO HSPRN PRN for sleep Past Medical History Patient History: Patient reports no known family medical history. Alcohol Use: Heavy Drug Use: methamphetamine Lives with: Other Lives In: Home Occupation: retired Review of Systems Constitutional: Denies: fever Gastrointestinal: Reports: abdomen distended, abdominal pain, nausea, vomiting; Denies: diarrhea Physical Exam Vital Signs: Temperature: 98.0, Source: Temporal, Heart Rate: 76, Respiratory Rate: 16, BP: 130/74, Pulse Oximetry: 92, Weight: 100.000 Oxygen Flow Rate: 0 Physical Exam General: This is a chronically ill-appearing older man, lying in bed with his eyes closed, daughter at bedside HEENT: Atraumatic, oropharynx is dry with cracked lips Heart: Regular rate and rhythm, normal-appearing peripheral perfusion Lungs: Mild tachypnea, upper airway crackles, wheezes in the lower feliz Abdomen: Distended tight abdomen, with diminished bowel sounds, he is not significantly tender on palpation, no rebound or guarding Extremities: Warm and well-perfused, pitting edema to both lower extremities with chronic appearing skin changes Neuro: Alert and oriented Psychiatric: Calm and cooperative with exam Progress Results/Orders Results/Orders Orders - GLENIS PATEL MD Chest,Single View (11/08/24 01:32) Monitor (11/08/24 01:32) Saline Lock (11/08/24 01:32) Oxygen (11/08/24 01:32) Hs Troponin I W Calculations (11/08/24 04:32) Ct Abdomen Pelvis (11/08/24 03:15) Nasal Gastric Tube (11/08/24 ) Page Hospitalist (11/08/24 03:50) Abdomen,Single View(Kub) (11/08/24 04:08) Completed Orders - GLENIS PATEL MD Urinalysis, Cult If Indicated (11/08/24 00:58) Cbc/Diff (11/08/24 00:58) Lipase (11/08/24 00:58) CMP (11/08/24 00:58) Chest,Single View (11/08/24 01:32) Electrocardiogram (11/08/24 01:32) Hs Troponin I W Calculations (11/08/24 01:32) Hs Troponin I W Calculations (11/08/24 03:32) Ondansetron Inj. (Zofran 4mg/2ml Vial) (11/08/24 02:25) Ct Abdomen Pelvis (11/08/24 03:15) Normal Saline 500ml Iv Soln (Sodium Chlo (11/08/24 03:10) Iohexol 300mg/Ml 100ml Inj. (Omnipaque-3 (11/08/24 03:33) Medications Received in ER Medications (Trade) Dose Ordered Sig/Edilia Route PRN Reason Start Time Stop Time Status Last Admin Dose Admin (Zofran 4mg/2ml vial) 4 mg ONCE ONCE IV 11/08/24 02:25 11/08/24 02:26 DC 11/08/24 02:27 4 MG Sodium Chloride 500 ml @ 1,000 mls/hr ONCE ONCE IV 11/08/24 03:10 11/08/24 03:39 DC 11/08/24 03:17 1,000 MLS/HR Vital Signs 11/08/24 11/08/24 11/08/24 11/08/24 00:54 01:48 02:12 02:32 Temp 98.0 Pulse 82 81 76 Resp 18 16 16 B/P (MAP) 154/78 126/81 (96) 130/74 (92) Pulse Ox 91 95 92 O2 Flow Rate 0 0 11/08/24 11/08/24 03:21 04:07 Pulse 77 81 Resp 18 16 B/P (MAP) 130/75 (93) 143/80 (101) Pulse Ox 97 94 O2 Flow Rate 2.0 0 Laboratory Tests Test 11/08/24 01:34 11/08/24 02:20 11/08/24 03:03 White Blood Count 10.8 Red Blood Count 4.01 L Hemoglobin 14.8 Hematocrit 42.6 Mean Corpuscular Volume 106.2 H Mean Corpuscular Hemoglobin 36.8 H Mean Corpuscular Hemoglobin Concent 34.7 Red Cell Distribution Width 14.6 H Platelet Count 183 Mean Platelet Volume 7.2 L Neutrophils (%) (Auto) 82.4 H Lymphocytes (%) (Auto) 4.7 L Monocytes (%) (Auto) 12.8 H Eosinophils (%) (Auto) 0 Basophils (%) (Auto) 0.1 Neutrophils # (Auto) 8.9 H Lymphocytes # (Auto) 0.5 L Monocytes # (Auto) 1.4 H Eosinophils # (Auto) 0.0 Basophils # (Auto) 0.0 CBC Comment Sodium Level 134 L Potassium Level 4.3 Chloride Level 99 Carbon Dioxide Level 30.3 Anion Gap 5 L Blood Urea Nitrogen 36 H Creatinine 1.23 H Estimated GFR/1.73 m2 56 BUN/Creatinine Ratio 29.3 H Glucose Level 133 H Calcium Level 9.0 Total Bilirubin 0.9 Aspartate Amino Transf (AST/SGOT) 32 Alanine Aminotransferase (ALT/SGPT) 44 Alkaline Phosphatase 66 Troponin I High Sensitivity 16 16 Total Protein 6.8 Albumin 3.6 Globulin 3.2 Albumin/Globulin Ratio 1.1 Lipase 16 Chemistry Comments Urine Specimen Description Urinal Urine Color Yellow Urine Clarity Clear Urine pH 6.0 Urine Specific Velma 1.025 Urine Protein Negative Urine Glucose (UA) Negative Urine Ketones Negative Urine Occult Blood Negative Urine Nitrite Negative Urine Bilirubin Negative Urine Urobilinogen 0.2 Urine Leukocyte Esterase Negative Urine Culture Indicated Not ind Volume Urine Centrifuged 10 ml Urine Comment Troponin I High Sens Percent Delta 0 Troponin I Hi Sens Absolute Change 0 EKG/XRAY/CT/US/VASC/MRI CT : Impression I personally reviewed the CT scan, and this shows small bowel obstruction with distended stomach, transition point appears in the lower abdomen Consults/PCP Consults/PCP : Additional Comment Consult: I spoke to the internal medicine service, for admission in the hospital Medical Decision Making Diff Dx N/V/D:Considerations: Include: Appendicitis, Bowel obstruction, Dehydration, Diverticulitis, Electrolyte imbalance, GI bleed, Hypovolemia, Impaction, Pancreatitis, Urinary obstruction, UTI Assessment The patient presents with abdominal distention and vomiting. His history and exam are very concerning for a bowel obstruction. An IV was placed, and he was given IV fluids for hydration as well as nausea medicine. CT scan then shows findings consistent with a small-bowel obstruction. An NG tube was placed. He will be admitted for further treatment and care. Departure Impression: Primary Impression: Small bowel obstruction Additional Impressions: Nausea and vomiting Dehydration Referrals: NO PRIMARY CARE PROVIDER (PCP) Signature Scribe Signature: na Attestation: GLENIS Ambrose MD Nov 08, 2024 02:51
[2024-11-08] MEDS: normal saline 500ml IV soln 500 ML IV ONE (03:17)
[2024-11-08] MEDS ORDERED: iohexol 300mg/ml 100ml inj. ONE (03:33)
[2024-11-08] MEDS ORDERED: magnesium sulf-water 2g/50mL 50 ML IV PRN (04:15)
[2024-11-08] MEDS ORDERED: potassium Cl 40MEQ/1/2NS 520ml 520 ML IV PRN (04:15)
[2024-11-08] MEDS ORDERED: ondansetron/PF 4mg/2ml inj IV PRN (04:15)
[2024-11-08] MEDS ORDERED: magnesium Cl slow-release 64mg tablet PO PRN (04:15)
[2024-11-08] MEDS ORDERED: potassium Cl 20 mEq SR tablet PO PRN ×2 (04:15)
[2024-11-08] MEDS ORDERED: acetaminophen 325mg tablet PO PRN (04:15)
[2024-11-08] MEDS ORDERED: magnesium sulf-water 4G/100mL 100 ML IV PRN (04:15)
--- NOTE | 2024-11-08 04:27 | RADIOLOGY REPORT ---
Exam: CT CT ABDOMEN PELVIS W/ IV CONTRAST History: Abdominal distention, vomiting, concern for obstruction COMPARISON: None Technique: Multidetector spiral CT of the abdomen and pelvis was performed from lung bases to pubic s ymphysis. Intravenous contrast was administered during this examination. Portal venous imaging was o btained. Axial, coronal and sagittal multiplanar reformats were performed by the technologist on a [employer] workstation. Radiation Dose : 1. Abdomen/Pelvis: CTDIvol 33.48 mGy, DLP 1617.32 mGy*cm. CONTRAST: Type of contrast: Omnipaque 300 Contrast injected: 100 ml Findings: Lung Bases: No acute or significant lung base finding. Calcified bibasilar pleural thickening Normal heart size. No pleural or pericardial effusion. Liver: The liver is normal in size. No focal lesions. 7 mm left hepatic lobe cyst. Normal hepatic va scular enhancement. Gallbladder and Biliary Tree: Unremarkable Spleen: Unremarkable Pancreas: The pancreas is normal in appearance without focal lesions or abnormal enhancement. Adrenal Glands: Unremarkable Kidneys: Multifocal bilateral renal parenchymal scarring and multiple bilateral renal cysts measuri ng up to 4.2 cm. No evidence of nephrolithiasis or hydronephrosis. Bladder: Unremarkable Bowel: The stomach is grossly normal in appearance. Moderately dilated predominantly fluid-filled seg ments of small bowel throughout the abdomen exhibiting few air-fluid levels within apparent zone of t ransition of caliber within the periumbilical ventral abdomen just right of midline. Scattered divert icula throughout the descending and sigmoid colon without CT evidence of acute diverticulitis. The ap pendix is not visualized; however, no secondary findings of acute appendicitis identified. Ascites: Trace lower abdominal and pelvic ascites. Lymphadenopathy: No mesenteric, retroperitoneal or periportal lymphadenopathy. Abdominal Wall and Mesentery: Unremarkable. Vasculature: The visualized abdominal aorta is mildly tortuous and otherwise normal in size and calib er. Atherosclerotic vascular calcifications are identified. Abdominal and pelvic vessels demonstrate normal enhancement. Pelvic Organs: The prostate is enlarged, measuring 5.5 cm transverse. Fat containing left inguinal he rnia. Status post right inguinal herniorrhaphy. Musculoskeletal: No aggressive focal bony lesions, acute fractures or dislocation. IMPRESSION: 1. Partial small bowel obstruction with apparent discrete zone of transition of caliber within the ri ght paramedian ventral abdomen. An obstructive etiology is not identified on this exam. 2. Diverticulosis coli without CT evidence of acute diverticulitis. Radiation optimization: All CT scans at this facility use at least one of these dose optimization ana hniques: automated exposure control mA and/or kV adjustment per patient size (includes targeted exam s where dose is matched to clinical indication) or iterative reconstruction.
--- NOTE | 2024-11-08 04:53 | HISTORY AND PHYSICAL-Residence ---
History & Physical Providers to CC Resident Creating Document: MEET SEN, BLAIR ~ History of Present Illness Primary Medical Doctor: [facility]. Machine Maintenance Servicer: Dr. De La Garza. Full Time Paramedic Dr. Up. Reason for Admit\Complaint: small-bowel obstruction History of Present Illness 83 years old male with history of COPD, CHF with preserved ejection fraction,, CKD, chronic alcohol use disorder presented to the ED with multiple nausea vomiting. The vomiting started yesterday and it was intractable containing food and nonbloody. Patient also reported abdominal bloating and distention however he denied abdominal pain. He reported had one time bowel movement yesterday which was small and loose. Patient was admitted in our hospital to three days ago with COPD exacerbation and CHF with preserved ejection fraction. Allergies: Coded Allergies: No Known Allergies (Unverified , 11/08/24) Home Medications Home Medications Active Reglan* (Metoclopramide HCl) 5 Mg Tablet 1 Tab PO Q6H Restoril (Temazepam) 15 Mg Capsule 1 Cap PO HSPRN PRN 30 Days Albuterol Sulfate (Albuterol) 2.5 Mg/3 Ml Vial.neb 1 Vial NEB Q4HPRN PRN Prednisone 10 Mg Tablet 0 PO DAILY Take 4 tabs daily x4 days, then 3 daily x4 days 2 daily x4 days 1 daily x4 days 1/2 daily x4 days then STOP Thera Tablet (Multivitamin with Folic Acid) 400 Mcg Tablet 1 Each PO Q24H Culturelle (Lactobacillus Rhamnosus) 10 Billion Cell Capsule 10,000 Mmu PO BID Mucinex (Guaifenesin) 600 Mg Tablet.sa 1,200 Mg PO Q12H Lasix* (Furosemide) 20 Mg Tablet 1 Tab PO BID 30 Days IPRAT-ALBUT 0.5-3(2.5) MG/3 ML nebule (Ipratropium/Albuterol Sulfate) 0.5 Mg-3 Mg (2.5 Mg Base)/3 Ml Ampul.neb 1 Vial NEB Q6H PRN 30 Days Proventil Hfa (Albuterol Sulfate) 6.7 Gm Hfa.aer.ad 2 Puffs INH Q6H Reported Vitamin B-12* (Cyanocobalamin) 500 Mcg Tablet 1 Tab PO DAILY 30 Days Fluticasone-Salmeterol 500-50 (Fluticasone Propion/Salmeterol) 500 Mcg-50 Mcg/Dose Blst.w.dev 1 Puffs INH Q12H 30 Days Anoro Ellipta 62.5-25 Mcg INH (Umeclidinium Brm/Vilanterol Tr) 62.5 Mcg-25 Mcg/Actuation Disk.w.dev 1 Puffs INH DAILY 30 Days Flomax (Tamsulosin HCl) 0.4 Mg Cap.sr.24h 2 Cap PO HS Dulera 200 Mcg/5 Mcg Inhaler (Mometasone/Formoterol) 13 Gm Hfa.aer.ad 2 Puffs INH Q12H 30 Days Past Medical History Past Medical History COPD, centrilobular emphysema CKD CHF with preserved ejection fraction Chronic alcohol use disorder History of macrocytic anemia History of BPH History of basal cell carcinoma status post surgical removal Past Surgical History Surgical History Comment 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 Past Social History Smoking: Quit greater than 1 year (He quit smoking two years ago, used to smoke 50 years at least one pack a day) Alcohol Use: Heavy (Patient drinks four beers daily and for glass of wine everyday for at least 65 years) Lives with: Other Lives In: Home Occupation: retired ROS ROS The history of present illness included a review of system, which yielded relevant positives and negatives Constitutional: Denies: fever Gastrointestinal: Reports: abdomen distended, abdominal pain, nausea, vomiting; Denies: diarrhea Exam Vitals: Vital Signs Date Time Temp Pulse Resp B/P (MAP) Pulse Ox O2 Delivery O2 Flow Rate FiO2 11/08/24 04:07 81 16 143/80 (101) 94 0 11/08/24 00:54 98.0 General: General: Awake and Alert, no acute distress. HEENT: Conjunctiva pink, Sclera clear, Mucus Membranes moist. Neck: Supple without masses and tenderness. Resp: mild crackle, diminished breath sound Heart: Regular Rate and rhythm, normal S1 and S2 Abdomen: Distended, nontender, bowel sounds hypoactive Extremities: Hyperpigmentation, 1+ edema right lower extremity more than left side Skin: Warm and Dry. Neurological: Speech is clear, alert, and oriented x 4, no gross neurological deficits Diagnostic Data Last Recorded Lab Results: 11/08/24 0134 11/08/24 0134 Advance Care Planning Advanced Care plannin - 30 Minutes Additional Plan 83 years old male with history of COPD, CHF with preserved ejection fraction, CKD presented to the ED with intractable nausea vomiting Partial small-bowel obstruction Intractable nausea vomiting Abdomen and pelvis ct: 1. Partial small bowel obstruction with apparent discrete zone of transition of caliber within the right paramedian ventral abdomen. An obstructive etiology is not identified on this exam. 2. Diverticulosis coli without CT evidence of acute diverticulitis. NG tube placed in the ED, patient reported he was feeling better after NG tub NPO, continue monitoring, surgery consult if the patient not improved Alcohol use disorder Macrocytic anemia Patient is drinking beer for bottle daily and for glass of wine everyday On moderate alcohol withdrawal protocol, we will continue monitoring monitoring Patient was consulted regarding the adverse effect of drinking leading gastritis or ulcer ,liver damage and other potential cause COPD not in exacerbation Stable patchy multifocal bilateral pulmonary airspace disease Continue albuterol and DuoNeb, oxygen keep O2 saturation around 90 % Acute on chronic kidney failure Creatinine 1.23, has been getting worse compared to last admission Patient received 1 L IV fluid, normal saline in the ED we will continue 20 mL/hour due to history of CHF CHF with preserved ejection fraction, not in exacerbation Echo: Normal LV size and wall thickness. Overall systolic function is normal. LVEF is 70-75%. Right ventricle is mildly dilated with adequate function. The left atrium size is normal. Trileaflet AV appears mildly sclerotic without stenosis. No insufficiency. Mild mitral annular calcification without stenosis. Trace regurgitation. The tricuspid valve is normal in structure with trace regurgitation. Normal pericardium. No effusion. Anterior epicardial fat pad is present. Continue home medication after reconciliation Code Status: DNR DVT prophylaxis: SCDs Analgesia/sedation: Ativan, haloperidol Line/tube: Peripheral GI prophylaxis: Protonix Nutrition: NPO PT: Yes Prognosis: Guarded Disposition: Continue monitoring patient with telemetry Meet Sen MD Internal Medicine Resident Addendum I personally reviewed the chart, labs and imaging and reviewed the patient with the team. I agree with the assessment and plan as documented by the resident. Patient was seen through remote audio-visual assessment through HIPAA compliance setup. Date of Service: Nov 08, 2024 Billing Provider: NOE MENDEZ MD, ELAHE, RES Nov 08, 2024 04:53 HARPREET MILLER MD Nov 08, 2024 06:25
[2024-11-08] MEDS ORDERED: albuterol 2.5 MG/3 ML nebule NEB PRN (05:20)
[2024-11-08] MEDS ORDERED: LORazepam 2 mg/ml vial IV PRN (05:25)
[2024-11-08] MEDS ORDERED: haloperidol lactate 5mg/ml inj IM PRN (05:25)
--- NOTE | 2024-11-08 05:38 | RADIOLOGY REPORT ---
CHEST RADIOGRAPH Indication: nasogastric tube placement Technique: Single frontal view of the chest was obtained COMPARISON: DI ABDOMEN,SINGLE VIEW(KUB) on DOS: 11/07/24 FINDINGS: Lines and Tubes: Enteric catheter courses below the level of the diaphragm and terminates within the left upper quadrant, presumably within the gastric lumen. Lungs: Stable appearing patchy bilateral pulmonary airspace disease and pleural-based calcifications. Pleura: No effusion. No pneumothorax. Cardiomediastinal contours: Unremarkable Bones: Unremarkable IMPRESSION: 1. Stable appearing patchy bilateral pulmonary airspace disease. 2. Enteric catheter.
[2024-11-08] MEDS ORDERED: dextrose 50%-water 50ml dispensing syringe IV PRN (06:25)
[2024-11-08 06:42] LABS: APTT 22 SECONDS (22-32); PROTHROMBIN TIME 10.3 SECONDS (9.0-12.0)
[2024-11-08 07:21] LABS: MAGNESIUM 2.1 MG/DL (1.5-2.4)
[2024-11-08] MEDS: normal saline 1000ml 1,000 ML IV SCH (07:50)
[2024-11-08] MEDS: thiamine 100mg/ml 2ml inj. IV SCH (07:50)
[2024-11-08] MEDS: pantoprazole 40 MG vial IV SCH (07:50)
[2024-11-08] MEDS: folic acid 1mg/0.2ml inj IV SCH (07:50)
[2024-11-08] MEDS: K and/or MAG REPLACEMENT MC SCH (08:00)
[2024-11-08] MEDS: ipratropium/albuterol 3ml nebule NEB SCH (08:23)
--- NOTE | 2024-11-08 13:58 | PROGRESS NOTE ---
Progress Note Dictate Providers to CC CC: MONALISA MCDANIEL MD ~ Progress Note: Patient admitted with suspected small-bowel obstruction States he is not passing flatus Nasogastric tube placed earlier this morning with minimal output His only surgical history is an inguinal hernia repair I reviewed the CT scan and agree that there appears to be a small-bowel obstruction with transition point somewhere in the mid abdomen. Continue nasogastric tube May have ice chips and sips If unresolved by tomorrow morning we will repeat CT scan with enteral contrast Antibiotic Ordered?: N/A Objective Vitals Vital Signs Date Time Temp Pulse Resp B/P (MAP) Pulse Ox O2 Delivery O2 Flow Rate FiO2 11/08/24 11:42 80 18 Room Air 0.0 11/08/24 11:36 97 21 11/08/24 10:30 97.4 124/69 (87) Lab Results: 11/08/24 0134 11/08/24 0556 Coagulation Studies Laboratory Tests Test 11/08/24 05:56 Prothrombin Time 10.3 SECONDS (9.0-12.0) INR International Normalized Ratio 1.0 INR Activated Partial Thromboplast Time 22 SECONDS (22-32) Coagulation Comments MONALISA MCDANIEL MD Nov 08, 2024 13:58
--- NOTE | 2024-11-08 15:24 | PROGRESS NOTE- Residence ---
Progress Note - Resident Providers to CC Resident Creating Document: MARTIN HARRIS, BLAIR ~ Antibiotic Timeout Antibiotic Ordered?: No Subjective The patient has been evaluated at the bedside. The patient reports improvement of nausea and vomiting. Objective Vital Signs Date Time Temp Pulse Resp B/P (MAP) Pulse Ox O2 Delivery O2 Flow Rate FiO2 11/08/24 11:42 80 18 Room Air 0.0 11/08/24 11:36 97 21 11/08/24 10:30 97.4 124/69 (87) Physical exam: General: Well alert, well oriented, not confused, not agitated, not in acute distress, well cooperated during the physical. HEENT: Conjunctive are pink, sclerae clear, no icterus, pupil is equal in both sides, reactive to light, no ear discharge, no pharyngeal erythema or an edema. Presence of NG tube in the left side of the nose. Neck: Supple, no JVD, no lymphadenopathy and thyromegaly. Chest: Diminished air entry bilaterally, decreased wheezing bilaterally, presence of rhonchus bilaterally. 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 Central Nervous System: No focal neurological deficits, no motor or sensory weakness in all 4 extremities, could move all 4 extremities, 2+ deep tendon reflexes, negative Babinski. Musculoskeletal: No other joint swelling, deformities, inflammations, and no scoliosis and back tenderness Skin: Warm and dry. Result Diagram: 11/08/24 0134 11/08/24 0556 Coagulation Studies Laboratory Tests Test 11/08/24 05:56 Prothrombin Time 10.3 SECONDS (9.0-12.0) INR International Normalized Ratio 1.0 INR Activated Partial Thromboplast Time 22 SECONDS (22-32) Coagulation Comments Assessment Assessment 83 years old male with history of COPD, CHF with preserved ejection fraction, CKD presented to the ED with intractable nausea vomiting Plan Plan Partial small-bowel obstruction Intractable nausea vomiting Abdomen and pelvis ct: 1. Partial small bowel obstruction with apparent discrete zone of transition of caliber within the right paramedian ventral abdomen. An obstructive etiology is not identified on this exam. 2. Diverticulosis coli without CT evidence of acute diverticulitis. NG tube placed in the ED, patient reported he was feeling better after NG tub NPO, continue monitoring, surgery consult if the patient not improved. 11/08/2024: Surgeon Dr. Denson was consulted. Recommends continue NG tube for 24 hours. Follow-up CT scan with oral and IV contrast with the overnight prep. NPO. Alcohol use disorder Macrocytic anemia Patient is drinking beer for bottle daily and for glass of wine everyday On moderate alcohol withdrawal protocol, we will continue monitoring monitoring Patient was consulted regarding the adverse effect of drinking leading gastritis or ulcer ,liver damage and other potential cause COPD not in exacerbation Stable patchy multifocal bilateral pulmonary airspace disease Continue albuterol and DuoNeb, oxygen keep O2 saturation around 90 %. On methylprednisolone 25 mg daily. Acute kidney injury likely secondary to dehydration: Creatinine 1.23, has been getting worse compared to last admission Patient received 1 L IV fluid, normal saline in the ED we will continue 20 mL/hour due to history of CHF. 11/08/2024: Currently on NS 50 mL/hour. Follow-up urine lytes. CHF with preserved ejection fraction, not in exacerbation Echo: Normal LV size and wall thickness. Overall systolic function is normal. LVEF is 70-75%. Right ventricle is mildly dilated with adequate function. The left atrium size is normal. Trileaflet AV appears mildly sclerotic without stenosis. No insufficiency. Mild mitral annular calcification without stenosis. Trace regurgitation. The tricuspid valve is normal in structure with trace regurgitation. Normal pericardium. No effusion. Anterior epicardial fat pad is present. The patient is currently NPO. Holding Lasix due to kidney function. Code Status: DNR DVT prophylaxis: SCDs Analgesia/sedation: Ativan, haloperidol Line/tube: Peripheral GI prophylaxis: Protonix Nutrition: NPO PT: Yes Prognosis: Guarded Disposition: We will continue medical management. CT scan of the abdomen and pelvis with oral contrast. Overnight prep. Martin Fernandez Internal Medicine Resident [facility] Date of Service: Nov 08, 2024 Billing Provider: ROMY CRABTREE MD Common Visit Codes: [id number] INP/OBS CARE(HIGH) MARTIN HARRIS, RES Nov 08, 2024 15:24 ROMY CRABTREE MD Nov 11, 2024 07:31
[2024-11-08 16:00] LABS: TOTAL PROTEIN,URINE RANDOM 30.8 MG/DL
[2024-11-08] MEDS: diatr meglu/diatrizoate 30ml oral sol.-(3 dose) bottle PO SCH (20:32)
[2024-11-08] MEDS: temazepam 15mg capsule PO ONE (22:00)
[2024-11-09] VITALS (15 sets, daily range): BP systolic 117–129; BP diastolic 71–73; PULSE 76–85; RESP 16–24; TEMP 96.9–98.5; O2SAT 91–96
--- NOTE | 2024-11-09 02:52 | RADIOLOGY REPORT ---
CHEST RADIOGRAPH Indication: Shortness of breath Technique: Single frontal view of the chest was obtained COMPARISON: DI CHEST,SINGLE VIEW on DOS: 11/08/24, DI CHEST,SINGLE VIEW on DOS: 11/07/24, CHEST,SINGLE VIEW on DOS: 10/17/22, CHEST,SINGLE VIEW on DOS: 05/14/22 FINDINGS: Lines and Tubes: Enteric catheter courses below the level of the diaphragm and terminates within the left upper quadrant, presumably within the gastric lumen. Lungs: Stable appearing mild multifocal bilateral pulmonary airspace disease predominantly within the middle and lower lung zones. Pleura: No effusion. No pneumothorax. Cardiomediastinal contours: Unremarkable Bones: Unremarkable IMPRESSION: 1. Stable appearing bilateral predominantly middle and lower lung zone pulmonary airspace disease. 2. Enteric catheter as above.
[2024-11-09 07:04] LABS: MAGNESIUM 2.2 MG/DL (1.5-2.4); PHOSPHORUS 3.9 MG/DL (2.3-4.5)
[2024-11-09] MEDS: methylPREDNISolone sod succ/PF 40mg inj. IV SCH (07:45)
[2024-11-09 08:45] LABS: BASOPHILS % (AUTO) 0.1 % (0-1); EOSINOPHILS % (AUTO) 0.4 % (0-6); HEMATOCRIT 38.1 % (42.0-52.0); LYMPHOCYTES # (AUTO) 0.5 X10'3 (1.1-4.8); LYMPHOCYTES % (AUTO) 5.8 % (21-51); MEAN CORPUSCULAR HEMOGLOBIN 36.1 PG (27.0-31.0); MEAN CORPUSCULAR HGB CONC 34.1 g/dL (33.0-36.5); MEAN CORPUSCULAR VOLUME 105.6 FL (78-98); MEAN PLATELET VOLUME 7.2 FL (7.4-10.4); MONOCYTES # (AUTO) 0.9 X10'3 (0-0.9); MONOCYTES % (AUTO) 10.7 % (2-12); NEUTROPHILS # (AUTO) 6.8 X10'3 (1.8-7.7); PLATELET COUNT 160 X10'3 (140-440); RED BLOOD COUNT 3.61 X10'6 (4.70-6.10); RED CELL DISTRIBUTION WIDTH 14.7 % (11.5-14.5); WHITE BLOOD COUNT 8.2 X10'3 (4.5-11.0)
[2024-11-09 08:59] LABS: ALANINE AMINOTRANSFERASE 38 U/L (12-78); ALBUMIN/GLOBULIN RATIO 1.2 (1.1-1.5); ALKALINE PHOSPHATASE 53 IU/L (46-116); ANION GAP 4 (8-16); ASPARTATE AMINO TRANSFERASE 21 U/L (10-37); BILIRUBIN,TOTAL 0.9 MG/DL (0.1-1.0); BLOOD UREA NITROGEN 26 MG/DL (7-18); CALCIUM 8.2 MG/DL (8.5-10.1); CHLORIDE 106 MMOL/L (99-107); CREATININE 1.04 MG/DL (0.60-1.10); GLUCOSE 85 MG/DL (70-104); SODIUM 138 MMOL/L (135-145); TOTAL CARBON DIOXIDE 27.7 MMOL/L (24-32); TOTAL PROTEIN 5.6 G/DL (6.4-8.2); eCRCL 60 ML/MIN; eGFR 68 ML/MIN
[2024-11-09 09:10] LABS: PROTHROMBIN TIME 10.1 SECONDS (9.0-12.0)
[2024-11-09] MEDS: dextrose 5%-water 1,000 ML IV SCH (12:14)
[2024-11-09] MEDS ORDERED: iohexol 300mg/ml 100ml inj. ONE (12:37)
--- NOTE | 2024-11-09 13:46 | PROGRESS NOTE- Residence ---
Progress Note - Resident Providers to CC Resident Creating Document: MARTIN HARRIS, BLAIR ~ Antibiotic Timeout Antibiotic Ordered?: Yes Subjective The patient has been evaluated at bedside. The patient reports improvement of nausea and vomiting, denies any pain. The patient currently with NG tube, mild draining of black fluid. Objective Vital Signs Date Time Temp Pulse Resp B/P (MAP) Pulse Ox O2 Delivery O2 Flow Rate FiO2 11/09/24 10:55 79 18 Nasal Cannula 3.0 11/09/24 10:50 92 21 11/09/24 10:00 97.6 126/73 (90) Physical exam: General: Well alert, well oriented, not confused, not agitated, not in acute distress, well cooperated during the physical. HEENT: Conjunctive are pink, sclerae clear, no icterus, pupil is equal in both sides, reactive to light, no ear discharge, no pharyngeal erythema or an edema. Presence of NG tube in the left side of the nose. Neck: Supple, no JVD, no lymphadenopathy and thyromegaly. Chest: Diminished air entry bilaterally, decreased wheezing bilaterally, presence of rhonchus bilaterally. 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 Central Nervous System: No focal neurological deficits, no motor or sensory weakness in all 4 extremities, could move all 4 extremities, 2+ deep tendon reflexes, negative Babinski. Musculoskeletal: No other joint swelling, deformities, inflammations, and no scoliosis and back tenderness Skin: Warm and dry. Result Diagram: 11/09/24 0813 11/09/24 0813 Coagulation Studies Laboratory Tests Test 11/08/24 05:56 11/09/24 08:13 Activated Partial Thromboplast Time 22 SECONDS (22-32) Prothrombin Time 10.1 SECONDS (9.0-12.0) INR International Normalized Ratio 1.0 INR Coagulation Comments Assessment Assessment 83 years old male with history of COPD, CHF with preserved ejection fraction, CKD presented to the ED with intractable nausea vomiting Plan Plan Partial small-bowel obstruction Intractable nausea vomiting Abdomen and pelvis ct: 1. Partial small bowel obstruction with apparent discrete zone of transition of caliber within the right paramedian ventral abdomen. An obstructive etiology is not identified on this exam. 2. Diverticulosis coli without CT evidence of acute diverticulitis. NG tube placed in the ED, patient reported he was feeling better after NG tub NPO, continue monitoring, surgery consult if the patient not improved. 11/08/2024: Surgeon Dr. Denson was consulted. Recommends continue NG tube for 24 hours. Follow-up CT scan with oral and IV contrast with the overnight prep. NPO. 11/09/2024: Order CT scan with overnight prep. Pending result. We will continue NG tube. Patient states that his releasing gases but not bowel movement. Alcohol use disorder Macrocytic anemia Patient is drinking beer for bottle daily and for glass of wine everyday On moderate alcohol withdrawal protocol, we will continue monitoring monitoring. On thiamine and folic acid. Patient was consulted regarding the adverse effect of drinking leading gastritis or ulcer ,liver damage and other potential cause COPD not in exacerbation Stable patchy multifocal bilateral pulmonary airspace disease Continue albuterol and DuoNeb, oxygen keep O2 saturation around 90 %. On methylprednisolone 25 mg daily. Prerenal Acute kidney injury likely secondary to dehydration-resolved: Creatinine 1.23, has been getting worse compared to last admission Patient received 1 L IV fluid, normal saline in the ED we will continue 20 mL/hour due to history of CHF. 11/08/2024: Currently on NS 50 mL/hour. Follow-up urine lytes. 11/09/2024: BUN/creatinine ratio 25.0. Fractional excretion of sodium: 0.1%. Fractional excretion of urea: 25.9%. Pointing towards prerenal acute kidney injury. Stopping NS, starting D5 water at 100 mL/hour. CHF with preserved ejection fraction, not in exacerbation Echo: Normal LV size and wall thickness. Overall systolic function is normal. LVEF is 70-75%. Right ventricle is mildly dilated with adequate function. The left atrium size is normal. Trileaflet AV appears mildly sclerotic without stenosis. No insufficiency. Mild mitral annular calcification without stenosis. Trace regurgitation. The tricuspid valve is normal in structure with trace regurgitation. Normal pericardium. No effusion. Anterior epicardial fat pad is present. The patient is currently NPO. Holding Lasix due to kidney function. Code Status: DNR DVT prophylaxis: SCDs Analgesia/sedation: Ativan, haloperidol Line/tube: Peripheral GI prophylaxis: Protonix Nutrition: NPO PT: Yes Prognosis: Guarded Disposition: We will continue medical management. Martin Fernandez Internal Medicine Resident [facility] Date of Service: Nov 09, 2024 Billing Provider: ROMY CRABTREE MD Common Visit Codes: [id number] INP/OBS CARE(HIGH) MARTIN HARRIS, RES Nov 09, 2024 13:46 ROMY CRABTREE MD Nov 11, 2024 07:32
--- NOTE | 2024-11-09 14:18 | RADIOLOGY REPORT ---
Exam: CT CT ABDOMEN PELVIS W/ IV ORAL CONTRAST History: SBO Comparison Study: CT CT ABDOMEN PELVIS W/ IV CONTRAST on DOS: 11/08/24 TECHNIQUE: Multidetector CT of the abdomen and pelvis with IV contrast. Axial, coronal and sagittal m ultiplanar reformats were obtained from the axial data set by the technologist. Radiation Dose Information: CT Dose: CTDI volume is 30.92 mGy. Dose-length product is 1668.44 mGy*cm FINDINGS: Bibasilar opacities with bibasilar and diaphragmatic pleural thickening and pleural calcifications. P artially visualized heart is unremarkable. There appears to be vicarious secretion of contrast within the gallbladder. Liver, spleen, pancreas a nd left adrenal gland are unremarkable. 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 Unchanged multiple bilateral hypodense exophytic lesions measuring up to 3.4 cm on the right and 2 cm on the left which may represent complex cysts with peripheral focus of calcification involving a rig ht renal interpolar region 2.4 cm cyst. Additional subcentimeter hypodense left renal lesion noted t hat are too small to characterize. No hydro nephrosis bilaterally. Contrast is noted within the urina ry bladder. Prostate measures 4.9 x 5.3 x 5.3 cm with calcification. NG tube is noted in place. Mild gastric wall thickening. Oral contrast is noted within the stomach an d small bowel loops with small contrast passage into the cecum. 1.3 cm lipoma within small bowel segm ents of the anterior mid to lower abdomen. There is interval improvement in the distention of the pro ximal and mid small bowel loops measuring up to 3.4 cm, previously measuring up to 4.9 cm. Colonic diverticulosis without diverticulitis. Moderate amount of fecal material within the colon. Trace amount of free fluid within the cul-de-sac. No evidence of intraperitoneal free air No evidence of aortic aneurysm. [id number] atherosclerotic calcification of the aorta and bilat eral iliacs. No significant lymphadenopathy. Small fat containing left inguinal hernia. Unchanged postsurgical changes of the right inguinal regio n. Small fat and fluid containing umbilical hernia. Mild abdominal wall fat stranding. No destructive osseous lesions are noted. IMPRESSION: Interval decrease in the distention of the small bowel loops with contrast passage from the small bow el into the large bowel consistent with partial bowel obstruction. Enteric tube is noted in satisfac tory position. Gastric wall thickening. Correlate for gastritis. Colonic diverticulosis without diverticulitis. Moderate amount of fecal material within the colon. There are bilateral complex renal cysts with additional subcentimeter hypodense left renal lesion too small to characterize. Renal ultrasound is recommended for further evaluation. Enlarged prostate. Recommend correlation with PSA. Bibasilar pneumonia/ atelectasis with bibasilar pleural thickening and calcification. Additional findings as above.
--- NOTE | 2024-11-09 20:29 | PROGRESS NOTE ---
Progress Note Dictate Providers to CC CC: MONALISA MCDANIEL MD ~ Progress Note: Admitted with small-bowel obstruction Reports only surgical history is an inguinal hernia repair Denies any nausea today CT scan shows contrast reaching the terminal ileum and proximal large bowel Distended loops improved Nasogastric tube clamping trial Clear liquid diet If tolerates, we will remove this tomorrow and plan for home Antibiotic Ordered?: No Objective Vitals Vital Signs Date Time Temp Pulse Resp B/P (MAP) Pulse Ox O2 Delivery O2 Flow Rate FiO2 11/09/24 18:59 81 16 Room Air 0.0 11/09/24 18:52 94 24 11/09/24 10:00 97.6 126/73 (90) Lab Results: 11/09/24 0813 11/09/24 0813 Coagulation Studies Laboratory Tests Test 11/08/24 05:56 11/09/24 08:13 Activated Partial Thromboplast Time 22 SECONDS (22-32) Prothrombin Time 10.1 SECONDS (9.0-12.0) INR International Normalized Ratio 1.0 INR Coagulation Comments MONALISA MCDANIEL MD Nov 09, 2024 20:29
[2024-11-10] VITALS (17 sets, daily range): BP systolic 112–133; BP diastolic 60–74; PULSE 73–89; RESP 14–18; TEMP 98–98.7; O2SAT 91–94
[2024-11-10 05:36] LABS: BASOPHILS % (AUTO) 0.2 % (0-1); EOSINOPHILS % (AUTO) 0.5 % (0-6); HEMATOCRIT 38.2 % (42.0-52.0); LYMPHOCYTES # (AUTO) 0.7 X10'3 (1.1-4.8); LYMPHOCYTES % (AUTO) 9.3 % (21-51); MEAN CORPUSCULAR HEMOGLOBIN 35.8 PG (27.0-31.0); MEAN CORPUSCULAR VOLUME 105.4 FL (78-98); MEAN PLATELET VOLUME 7.2 FL (7.4-10.4); MONOCYTES # (AUTO) 0.8 X10'3 (0-0.9); MONOCYTES % (AUTO) 10.9 % (2-12); NEUTROPHILS % (AUTO) 79.1 % (42-75); PLATELET COUNT 147 X10'3 (140-440); RED BLOOD COUNT 3.63 X10'6 (4.70-6.10); RED CELL DISTRIBUTION WIDTH 14.6 % (11.5-14.5); WHITE BLOOD COUNT 7.6 X10'3 (4.5-11.0)
[2024-11-10 05:53] LABS: PROTHROMBIN TIME 10.6 SECONDS (9.0-12.0)
[2024-11-10 05:57] LABS: ALANINE AMINOTRANSFERASE 34 U/L (12-78); ALBUMIN 2.8 G/DL (3.4-5.0); ALKALINE PHOSPHATASE 49 IU/L (46-116); AMYLASE 20 U/L (25-115); ANION GAP 8 (8-16); ASPARTATE AMINO TRANSFERASE 20 U/L (10-37); BILIRUBIN,TOTAL 0.8 MG/DL (0.1-1.0); BLOOD UREA NITROGEN 19 MG/DL (7-18); BUN/CREATININE RATIO 19.4 (10.0-20.0); CHLORIDE 102 MMOL/L (99-107); CREATININE 0.98 MG/DL (0.60-1.10); GLUCOSE 118 MG/DL (70-104); LIPASE 14 U/L (16-77); MAGNESIUM 2.3 MG/DL (1.5-2.4); PHOSPHORUS 3.5 MG/DL (2.3-4.5); POTASSIUM 3.6 MMOL/L (3.5-5.1); SODIUM 137 MMOL/L (135-145); TOTAL CARBON DIOXIDE 26.7 MMOL/L (24-32); TOTAL PROTEIN 5.5 G/DL (6.4-8.2); eCRCL 64 ML/MIN; eGFR 73 ML/MIN
[2024-11-10 09:19] LABS: PLATELET ESTIMATE NORMAL; TOTAL CELLS COUNTED 100
[2024-11-10] MEDS: metoclopramide 5 mg/ml inj IV SCH (09:57)
--- NOTE | 2024-11-10 11:31 | PROGRESS NOTE ---
Progress Note Dictate Providers to CC CC: MONALISA MCDANIEL MD ~ Progress Note: Did not tolerate NG tube clamping with distention and nausea Moderate bilious output when returned to suctioned and adjusted/repositioned Given the patient's lack of significant surgical history and no clear obstruction on repeat CT scan with enteral contrast, I would be hesitant to operate on this patient given his medical comorbidities and high surgical risk Consider another 24 hours of bowel rest If he does not improve, diagnostic laparoscopy is reasonable, however, in the interim I would work on bowel motility, with tight electrolyte control and avoiding narcotic medications Antibiotic Ordered?: N/A Objective Vitals Vital Signs Date Time Temp Pulse Resp B/P (MAP) Pulse Ox O2 Delivery O2 Flow Rate FiO2 11/10/24 10:45 78 18 Room Air 0.0 11/10/24 10:41 92 21 11/09/24 22:00 98.5 121/73 (89) Lab Results: 11/10/24 0509 11/10/24 0509 Coagulation Studies Laboratory Tests Test 11/08/24 05:56 11/10/24 05:09 Activated Partial Thromboplast Time 22 SECONDS (22-32) Prothrombin Time 10.6 SECONDS (9.0-12.0) INR International Normalized Ratio 1.0 INR Coagulation Comments MONALISA MCDANIEL MD Nov 10, 2024 11:31
--- NOTE | 2024-11-10 13:29 | PROGRESS NOTE- Residence ---
Progress Note - Resident Providers to CC Resident Creating Document: MARTIN HARRIS, RES ~ Antibiotic Timeout Antibiotic Ordered?: No Subjective The patient has been evaluated at the bedside. Trial to clap NG tube was tried today, patient did not tolerate clear liquid diet. NG tube suction started again. The patient currently denies abdominal pain, states releasing gases for four time. Objective Vital Signs Date Time Temp Pulse Resp B/P (MAP) Pulse Ox O2 Delivery O2 Flow Rate FiO2 11/10/24 10:45 78 18 Room Air 0.0 11/10/24 10:41 92 21 11/09/24 22:00 98.5 121/73 (89) Physical exam: General: Well alert, well oriented, not confused, not agitated, not in acute distress, well cooperated during the physical. HEENT: Conjunctive are pink, sclerae clear, no icterus, pupil is equal in both sides, reactive to light, no ear discharge, no pharyngeal erythema or an edema. Presence of NG tube in the left side of the nose. Neck: Supple, no JVD, no lymphadenopathy and thyromegaly. Chest: Diminished air entry bilaterally, decreased wheezing bilaterally, presence of rhonchus bilaterally. 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 Central Nervous System: No focal neurological deficits, no motor or sensory weakness in all 4 extremities, could move all 4 extremities, 2+ deep tendon reflexes, negative Babinski. Musculoskeletal: No other joint swelling, deformities, inflammations, and no scoliosis and back tenderness Skin: Warm and dry. Result Diagram: 11/10/24 0509 11/10/24 0509 Coagulation Studies Laboratory Tests Test 11/08/24 05:56 11/10/24 05:09 Activated Partial Thromboplast Time 22 SECONDS (22-32) Prothrombin Time 10.6 SECONDS (9.0-12.0) INR International Normalized Ratio 1.0 INR Coagulation Comments Assessment Assessment 83 years old male with history of COPD, CHF with preserved ejection fraction, CKD presented to the ED with intractable nausea vomiting Plan Plan Partial small-bowel obstruction Intractable nausea vomiting Abdomen and pelvis ct: 1. Partial small bowel obstruction with apparent discrete zone of transition of caliber within the right paramedian ventral abdomen. An obstructive etiology is not identified on this exam. 2. Diverticulosis coli without CT evidence of acute diverticulitis. NG tube placed in the ED, patient reported he was feeling better after NG tub NPO, continue monitoring, surgery consult if the patient not improved. 11/08/2024: Surgeon Dr. Denson was consulted. Recommends continue NG tube for 24 hours. Follow-up CT scan with oral and IV contrast with the overnight prep. NPO. 11/09/2024: Order CT scan with overnight prep. Pending result. We will continue NG tube. Patient states that his releasing gases but not bowel movement. 11/10/2024: CT scan of the abdomen/pelvis with oral and IV contrast: Interval decrease in the distention of the small bowel loops with contrast passage from the small bowel into the large bowel consistent with partial bowel obstruction. Enteric tube is noted in satisfactory position. Gastric wall thickening. Correlate for gastritis. Colonic diverticulosis without diverticulitis. Moderate amount of fecal material within the colon. There are bilateral complex renal cysts with additional subcentimeter hypodense left renal lesion too small to characterize. Renal ultrasound is recommended for further evaluation. Enlarged prostate. Recommend correlation with PSA. Bibasilar pneumonia/ atelectasis with bibasilar pleural thickening and calcification. Additional findings as above. The patient did not tolerate clear liquid diet, Dr. Denson recommends another 24 hours of bowel rest. If not improved diagnostic laparoscopic is considered. Started on metoclopramide 5 mg q.6h IV. Alcohol use disorder Macrocytic anemia Patient is drinking beer for bottle daily and for glass of wine everyday On moderate alcohol withdrawal protocol, we will continue monitoring monitoring. On thiamine and folic acid. Patient was consulted regarding the adverse effect of drinking leading gastritis or ulcer ,liver damage and other potential cause COPD not in exacerbation Stable patchy multifocal bilateral pulmonary airspace disease Continue albuterol and DuoNeb, oxygen keep O2 saturation around 90 %. On methylprednisolone 25 mg daily. Prerenal Acute kidney injury likely secondary to dehydration-resolved: Creatinine 1.23, has been getting worse compared to last admission Patient received 1 L IV fluid, normal saline in the ED we will continue 20 mL/hour due to history of CHF. BUN/creatinine ratio 25.0. Fractional excretion of sodium: 0.1%. Fractional excretion of urea: 25.9%. Pointing towards prerenal acute kidney injury. D5 water at 50 mL/hour. CHF with preserved ejection fraction, not in exacerbation Echo: Normal LV size and wall thickness. Overall systolic function is normal. LVEF is 70-75%. Right ventricle is mildly dilated with adequate function. The left atrium size is normal. Trileaflet AV appears mildly sclerotic without stenosis. No insufficiency. Mild mitral annular calcification without stenosis. Trace regurgitation. The tricuspid valve is normal in structure with trace regurgitation. Normal pericardium. No effusion. Anterior epicardial fat pad is present. The patient is currently NPO. Holding Lasix due to kidney function. Code Status: DNR DVT prophylaxis: SCDs Analgesia/sedation: Ativan, haloperidol Line/tube: Peripheral GI prophylaxis: Protonix Nutrition: NPO PT: home independent. Prognosis: Guarded Disposition: We will continue medical management. Bowel rest for another 24 hours. The patient will be discharged home after medically cleared. Martin Fernandez Internal Medicine Resident [facility] Date of Service: Nov 10, 2024 Billing Provider: ROMY CRABTREE MD Common Visit Codes: [id number] INP/OBS CARE(HIGH) MARTIN HARRIS, RES Nov 10, 2024 13:29 ROMY CRABTREE MD Nov 11, 2024 07:33
[2024-11-10] MEDS ORDERED: dextrose 50%-water 50ml dispensing syringe IV PRN ×2 (17:20)
[2024-11-10] MEDS ORDERED: DEXTROSE 15 GM of carb/4 tabs (each vial/BOTTLE has 4 tablets) PO PRN ×2 (17:20)
[2024-11-10] MEDS ORDERED: glucagon, human recombinant 1mg kit SUBCUT PRN (17:20)
[2024-11-10] MEDS: INSULIN LISPRO 100 UNIT/ML INSULN.PEN MULTI-DOSE SQ SCH (20:43)
[2024-11-10] MEDS: temazepam 15mg capsule PO ONE (23:11)
[2024-11-11] VITALS (16 sets, daily range): BP systolic 122–141; BP diastolic 64–77; PULSE 63–90; RESP 14–22; TEMP 97.7–97.9; O2SAT 93–100
[2024-11-11 05:23] LABS: BASOPHILS % (AUTO) 0.5 % (0-1); EOSINOPHILS % (AUTO) 0.5 % (0-6); HEMATOCRIT 37.9 % (42.0-52.0); LYMPHOCYTES # (AUTO) 0.7 X10'3 (1.1-4.8); LYMPHOCYTES % (AUTO) 8.8 % (21-51); MEAN CORPUSCULAR HEMOGLOBIN 36.9 PG (27.0-31.0); MEAN CORPUSCULAR HGB CONC 34.4 g/dL (33.0-36.5); MEAN PLATELET VOLUME 8.1 FL (7.4-10.4); MONOCYTES # (AUTO) 0.8 X10'3 (0-0.9); MONOCYTES % (AUTO) 9.7 % (2-12); NEUTROPHILS # (AUTO) 6.8 X10'3 (1.8-7.7); NEUTROPHILS % (AUTO) 80.5 % (42-75); PLATELET COUNT 138 X10'3 (140-440); RED BLOOD COUNT 3.54 X10'6 (4.70-6.10); RED CELL DISTRIBUTION WIDTH 14.9 % (11.5-14.5); WHITE BLOOD COUNT 8.4 X10'3 (4.5-11.0)
[2024-11-11 05:39] LABS: INR 1.1 INR; PROTHROMBIN TIME 10.9 SECONDS (9.0-12.0)
[2024-11-11 05:44] LABS: ALANINE AMINOTRANSFERASE 35 U/L (12-78); ALBUMIN 2.8 G/DL (3.4-5.0); ALKALINE PHOSPHATASE 50 IU/L (46-116); AMYLASE 16 U/L (25-115); ANION GAP 3 (8-16); ASPARTATE AMINO TRANSFERASE 15 U/L (10-37); BILIRUBIN,TOTAL 0.7 MG/DL (0.1-1.0); BLOOD UREA NITROGEN 16 MG/DL (7-18); BUN/CREATININE RATIO 18.8 (10.0-20.0); CALCIUM 8.2 MG/DL (8.5-10.1); CHLORIDE 103 MMOL/L (99-107); CREATININE 0.85 MG/DL (0.60-1.10); GLUCOSE 114 MG/DL (70-104); LIPASE 12 U/L (16-77); MAGNESIUM 2.2 MG/DL (1.5-2.4); PHOSPHORUS 3.2 MG/DL (2.3-4.5); POTASSIUM 3.8 MMOL/L (3.5-5.1); SODIUM 134 MMOL/L (135-145); TOTAL CARBON DIOXIDE 27.8 MMOL/L (24-32); TOTAL PROTEIN 5.5 G/DL (6.4-8.2); eCRCL 74 ML/MIN; eGFR 86 ML/MIN
--- NOTE | 2024-11-11 17:33 | PROGRESS NOTE- Residence ---
Progress Note - Resident Providers to CC Resident Creating Document: MARTIN HARRIS, RES ~ Antibiotic Timeout Antibiotic Ordered?: No Subjective The patient has been evaluated at the bedside. The patient denies any pain, as per patient releasing some gases. No bowel movements reported so far. Objective Vital Signs Date Time Temp Pulse Resp B/P (MAP) Pulse Ox O2 Delivery O2 Flow Rate FiO2 11/11/24 15:00 80 16 Room Air 11/11/24 14:54 93 0 21 11/11/24 10:00 97.7 130/70 (90) Physical exam: General: Well alert, well oriented, not confused, not agitated, not in acute distress, well cooperated during the physical. HEENT: Conjunctive are pink, sclerae clear, no icterus, pupil is equal in both sides, reactive to light, no ear discharge, no pharyngeal erythema or an edema. Presence of NG tube in the left side of the nose. Neck: Supple, no JVD, no lymphadenopathy and thyromegaly. Chest: Diminished air entry bilaterally, decreased wheezing bilaterally, presence of rhonchus bilaterally. 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 Central Nervous System: No focal neurological deficits, no motor or sensory weakness in all 4 extremities, could move all 4 extremities, 2+ deep tendon reflexes, negative Babinski. Musculoskeletal: No other joint swelling, deformities, inflammations, and no scoliosis and back tenderness Skin: Warm and dry. Result Diagram: 11/11/24 0500 11/11/24 0500 Coagulation Studies Laboratory Tests Test 11/08/24 05:56 11/11/24 05:00 Activated Partial Thromboplast Time 22 SECONDS (22-32) Prothrombin Time 10.9 SECONDS (9.0-12.0) INR International Normalized Ratio 1.1 INR Coagulation Comments Assessment Assessment 83 years old male with history of COPD, CHF with preserved ejection fraction, CKD presented to the ED with intractable nausea vomiting Plan Plan Partial small-bowel obstruction Intractable nausea vomiting Abdomen and pelvis ct: 1. Partial small bowel obstruction with apparent discrete zone of transition of caliber within the right paramedian ventral abdomen. An obstructive etiology is not identified on this exam. 2. Diverticulosis coli without CT evidence of acute diverticulitis. NG tube placed in the ED, patient reported he was feeling better after NG tub NPO, continue monitoring, surgery consult if the patient not improved. 11/08/2024: Surgeon Dr. Denson was consulted. Recommends continue NG tube for 24 hours. Follow-up CT scan with oral and IV contrast with the overnight prep. NPO. 11/09/2024: Order CT scan with overnight prep. Pending result. We will continue NG tube. Patient states that his releasing gases but not bowel movement. 11/10/2024: CT scan of the abdomen/pelvis with oral and IV contrast: Interval decrease in the distention of the small bowel loops with contrast passage from the small bowel into the large bowel consistent with partial bowel obstruction. Enteric tube is noted in satisfactory position. Gastric wall thickening. Correlate for gastritis. Colonic diverticulosis without diverticulitis. Moderate amount of fecal material within the colon. There are bilateral complex renal cysts with additional subcentimeter hypodense left renal lesion too small to characterize. Renal ultrasound is recommended for further evaluation. Enlarged prostate. Recommend correlation with PSA. Bibasilar pneumonia/ atelectasis with bibasilar pleural thickening and calcification. Additional findings as above. The patient did not tolerate clear liquid diet, Dr. Denson recommends another 24 hours of bowel rest. If not improved diagnostic laparoscopic is considered. Started on metoclopramide 5 mg q.6h IV. 11/11/2024: Abdomen is still distended. Clamping NG tube for 4 hours. Clear liquid diet if tolerated. Continue metoclopramide 5 mg q.6h IV. Alcohol use disorder Macrocytic anemia Patient is drinking beer for bottle daily and for glass of wine everyday On moderate alcohol withdrawal protocol, we will continue monitoring monitoring. On thiamine and folic acid. Patient was consulted regarding the adverse effect of drinking leading gastritis or ulcer ,liver damage and other potential cause COPD not in exacerbation Stable patchy multifocal bilateral pulmonary airspace disease Continue albuterol and DuoNeb, oxygen keep O2 saturation around 90 %. On methylprednisolone 25 mg daily. Prerenal Acute kidney injury likely secondary to dehydration-resolved: Creatinine 1.23, has been getting worse compared to last admission Patient received 1 L IV fluid, normal saline in the ED we will continue 20 mL/hour due to history of CHF. BUN/creatinine ratio 25.0. Fractional excretion of sodium: 0.1%. Fractional excretion of urea: 25.9%. Pointing towards prerenal acute kidney injury. D5 water at 50 mL/hour. CHF with preserved ejection fraction, not in exacerbation Echo: Normal LV size and wall thickness. Overall systolic function is normal. LVEF is 70-75%. Right ventricle is mildly dilated with adequate function. The left atrium size is normal. Trileaflet AV appears mildly sclerotic without stenosis. No insufficiency. Mild mitral annular calcification without stenosis. Trace regurgitation. The tricuspid valve is normal in structure with trace regurgitation. Normal pericardium. No effusion. Anterior epicardial fat pad is present. The patient is currently NPO. Holding Lasix due to kidney function. Code Status: DNR DVT prophylaxis: SCDs Analgesia/sedation: Ativan, haloperidol Line/tube: Peripheral GI prophylaxis: Protonix Nutrition: NPO PT: home independent. Prognosis: Guarded Disposition: We will continue medical management. Patient is a poor candidate for surgery. Surgeon Dr. Denson is following the patient. Martin Fernandez Internal Medicine Resident [facility] Date of Service: Nov 11, 2024 Billing Provider: ROMY CRABTREE MD Common Visit Codes: [id number] INP/OBS CARE(HIGH) MARTIN HARRIS, RES Nov 11, 2024 17:33 ROMY CRABTREE MD Nov 12, 2024 07:10
--- NOTE | 2024-11-11 18:45 | PROGRESS NOTE ---
Progress Note Dictate Providers to CC CC: MONALISA MCDANIEL MD ~ Progress Note: Subsequent surgical care on an 83-year-old gentleman with presumed small-bowel obstruction versus ileus Did not tolerate NG tube clamping yesterday, but he did today States he is passing flatus but no bowel movement Contrast reached the colon on CT scan; not consistent with complete bowel obstruction If tolerates overnight, I would remove it and put him on full liquid, low residual diet for a few days and discharged home. Antibiotic Ordered?: N/A Objective Vitals Vital Signs Date Time Temp Pulse Resp B/P (MAP) Pulse Ox O2 Delivery O2 Flow Rate FiO2 11/11/24 15:00 80 16 Room Air 11/11/24 14:54 93 0 21 11/11/24 10:00 97.7 130/70 (90) Lab Results: 11/11/24 0500 11/11/24 0500 Coagulation Studies Laboratory Tests Test 11/08/24 05:56 11/11/24 05:00 Activated Partial Thromboplast Time 22 SECONDS (22-32) Prothrombin Time 10.9 SECONDS (9.0-12.0) INR International Normalized Ratio 1.1 INR Coagulation Comments MONALISA MCDANIEL MD Nov 11, 2024 18:45
[2024-11-11] MEDS: temazepam 15mg capsule PO PRN (20:09)
[2024-11-12] VITALS (16 sets, daily range): BP systolic 114–131; BP diastolic 53–76; PULSE 70–83; RESP 16–18; TEMP 97.5–98.1; O2SAT 90–96
[2024-11-12 05:29] LABS: BASOPHILS % (AUTO) 0.2 % (0-1); EOSINOPHILS % (AUTO) 0.5 % (0-6); HEMATOCRIT 37.3 % (42.0-52.0); HEMOGLOBIN 12.8 g/dl (14.0-17.9); LYMPHOCYTES # (AUTO) 0.9 X10'3 (1.1-4.8); LYMPHOCYTES % (AUTO) 10.7 % (21-51); MEAN CORPUSCULAR HEMOGLOBIN 36.1 PG (27.0-31.0); MEAN CORPUSCULAR HGB CONC 34.3 g/dL (33.0-36.5); MEAN CORPUSCULAR VOLUME 105.3 FL (78-98); MEAN PLATELET VOLUME 7.2 FL (7.4-10.4); MONOCYTES # (AUTO) 0.8 X10'3 (0-0.9); MONOCYTES % (AUTO) 9.9 % (2-12); NEUTROPHILS # (AUTO) 6.4 X10'3 (1.8-7.7); NEUTROPHILS % (AUTO) 78.7 % (42-75); PLATELET COUNT 158 X10'3 (140-440); RED BLOOD COUNT 3.54 X10'6 (4.70-6.10); RED CELL DISTRIBUTION WIDTH 14.5 % (11.5-14.5); WHITE BLOOD COUNT 8.1 X10'3 (4.5-11.0)
[2024-11-12 05:41] LABS: PROTHROMBIN TIME 10.3 SECONDS (9.0-12.0)
[2024-11-12 05:44] LABS: ALANINE AMINOTRANSFERASE 37 U/L (12-78); ALBUMIN 2.9 G/DL (3.4-5.0); ALBUMIN/GLOBULIN RATIO 1.1 (1.1-1.5); ALKALINE PHOSPHATASE 51 IU/L (46-116); AMYLASE 17 U/L (25-115); ANION GAP 7 (8-16); ASPARTATE AMINO TRANSFERASE 20 U/L (10-37); BILIRUBIN,TOTAL 0.8 MG/DL (0.1-1.0); BLOOD UREA NITROGEN 13 MG/DL (7-18); CALCIUM 8.2 MG/DL (8.5-10.1); CHLORIDE 104 MMOL/L (99-107); CREATININE 0.93 MG/DL (0.60-1.10); GLUCOSE 105 MG/DL (70-104); LIPASE 15 U/L (16-77); MAGNESIUM 2.1 MG/DL (1.5-2.4); PHOSPHORUS 2.7 MG/DL (2.3-4.5); POTASSIUM 3.5 MMOL/L (3.5-5.1); SODIUM 139 MMOL/L (135-145); TOTAL CARBON DIOXIDE 27.7 MMOL/L (24-32); TOTAL PROTEIN 5.6 G/DL (6.4-8.2); eCRCL 67 ML/MIN; eGFR 78 ML/MIN
--- NOTE | 2024-11-12 17:25 | PROGRESS NOTE- Residence ---
Progress Note - Resident Providers to CC Resident Creating Document: MARTIN HARRIS, RES ~ Antibiotic Timeout Antibiotic Ordered?: No Subjective The patient has been evaluated at bedside. The patient states that he has been releasing gases. No bowel movements reported yet. Currently on clear liquid diet. Objective Vital Signs Date Time Temp Pulse Resp B/P (MAP) Pulse Ox O2 Delivery O2 Flow Rate FiO2 11/12/24 16:02 77 16 Room Air 11/12/24 15:57 91 0 21 11/12/24 10:00 97.5 123/68 (86) Physical exam: General: Well alert, well oriented, not confused, not agitated, not in acute distress, well cooperated during the physical. HEENT: Conjunctive are pink, sclerae clear, no icterus, pupil is equal in both sides, reactive to light, no ear discharge, no pharyngeal erythema or an edema. Neck: Supple, no JVD, no lymphadenopathy and thyromegaly. Chest: Diminished air entry bilaterally, decreased wheezing bilaterally, presence of rhonchus bilaterally. 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 Central Nervous System: No focal neurological deficits, no motor or sensory weakness in all 4 extremities, could move all 4 extremities, 2+ deep tendon reflexes, negative Babinski. Musculoskeletal: No other joint swelling, deformities, inflammations, and no scoliosis and back tenderness Skin: Warm and dry. Result Diagram: 11/12/24 0459 11/12/24 0459 Coagulation Studies Laboratory Tests Test 11/08/24 05:56 11/12/24 04:59 Activated Partial Thromboplast Time 22 SECONDS (22-32) Prothrombin Time 10.3 SECONDS (9.0-12.0) INR International Normalized Ratio 1.0 INR Coagulation Comments Assessment Assessment 83 years old male with history of COPD, CHF with preserved ejection fraction, CKD presented to the ED with intractable nausea vomiting Plan Plan Partial small-bowel obstruction Intractable nausea vomiting Abdomen and pelvis ct: 1. Partial small bowel obstruction with apparent discrete zone of transition of caliber within the right paramedian ventral abdomen. An obstructive etiology is not identified on this exam. 2. Diverticulosis coli without CT evidence of acute diverticulitis. NG tube placed in the ED, patient reported he was feeling better after NG tub NPO, continue monitoring, surgery consult if the patient not improved. 11/08/2024: Surgeon Dr. Denson was consulted. Recommends continue NG tube for 24 hours. Follow-up CT scan with oral and IV contrast with the overnight prep. NPO. 11/09/2024: Order CT scan with overnight prep. Pending result. We will continue NG tube. Patient states that his releasing gases but not bowel movement. 11/10/2024: CT scan of the abdomen/pelvis with oral and IV contrast: Interval decrease in the distention of the small bowel loops with contrast passage from the small bowel into the large bowel consistent with partial bowel obstruction. Enteric tube is noted in satisfactory position. Gastric wall thickening. Correlate for gastritis. Colonic diverticulosis without diverticulitis. Moderate amount of fecal material within the colon. There are bilateral complex renal cysts with additional subcentimeter hypodense left renal lesion too small to characterize. Renal ultrasound is recommended for further evaluation. Enlarged prostate. Recommend correlation with PSA. Bibasilar pneumonia/ atelectasis with bibasilar pleural thickening and calcification. Additional findings as above. The patient did not tolerate clear liquid diet, Dr. Denson recommends another 24 hours of bowel rest. If not improved diagnostic laparoscopic is considered. Started on metoclopramide 5 mg q.6h IV. 11/11/2024: Abdomen is still distended. Clamping NG tube for 4 hours. Clear liquid diet if tolerated. Continue metoclopramide 5 mg q.6h IV. 11/12/2024: NG tube removed by surgeon Dr. Denson recommendation. Advanced to fall liquid diet. Recommended low residual diet for a few days and discharged home. Alcohol use disorder Macrocytic anemia Patient is drinking beer for bottle daily and for glass of wine everyday On moderate alcohol withdrawal protocol, we will continue monitoring monitoring. On thiamine and folic acid. Patient was consulted regarding the adverse effect of drinking leading gastritis or ulcer ,liver damage and other potential cause COPD not in exacerbation Stable patchy multifocal bilateral pulmonary airspace disease Continue albuterol and DuoNeb, oxygen keep O2 saturation around 90 %. On methylprednisolone 25 mg daily. Prerenal Acute kidney injury likely secondary to dehydration-resolved: Creatinine 1.23, has been getting worse compared to last admission Patient received 1 L IV fluid, normal saline in the ED we will continue 20 mL/hour due to history of CHF. BUN/creatinine ratio 25.0. Fractional excretion of sodium: 0.1%. Fractional excretion of urea: 25.9%. Pointing towards prerenal acute kidney injury. D5 water at 50 mL/hour. CHF with preserved ejection fraction, not in exacerbation Echo: Normal LV size and wall thickness. Overall systolic function is normal. LVEF is 70-75%. Right ventricle is mildly dilated with adequate function. The left atrium size is normal. Trileaflet AV appears mildly sclerotic without stenosis. No insufficiency. Mild mitral annular calcification without stenosis. Trace regurgitation. The tricuspid valve is normal in structure with trace regurgitation. Normal pericardium. No effusion. Anterior epicardial fat pad is present. The patient is currently NPO. Holding Lasix due to kidney function. Code Status: DNR DVT prophylaxis: SCDs Analgesia/sedation: Ativan, haloperidol Line/tube: Peripheral GI prophylaxis: Protonix Nutrition: NPO PT: home independent. Prognosis: Guarded Disposition: We will continue medical management. Surgeon Dr. Denson is following the patient who recommends advance to full liquid diet, NG tube removed. Martin Fernandez Internal Medicine Resident [facility] Date of Service: Nov 12, 2024 Billing Provider: ROMY CRABTREE MD Common Visit Codes: [id number] INP/OBS CARE(HIGH) MARTIN HARRIS, RES Nov 12, 2024 17:25 ROMY CRABTREE MD Nov 12, 2024 21:28
[2024-11-13] VITALS (11 sets, daily range): BP systolic 126–134; BP diastolic 69–80; PULSE 66–86; RESP 16; TEMP 97.4–98.2; O2SAT 89–96
[2024-11-13 07:16] LABS: BASOPHILS % (AUTO) 0.4 % (0-1); EOSINOPHILS # (AUTO) 0.1 X10'3 (0-0.9); EOSINOPHILS % (AUTO) 0.5 % (0-6); HEMATOCRIT 38.6 % (42.0-52.0); HEMOGLOBIN 13.2 g/dl (14.0-17.9); LYMPHOCYTES # (AUTO) 1.1 X10'3 (1.1-4.8); LYMPHOCYTES % (AUTO) 11.8 % (21-51); MEAN CORPUSCULAR HGB CONC 34.3 g/dL (33.0-36.5); MEAN CORPUSCULAR VOLUME 105.1 FL (78-98); MEAN PLATELET VOLUME 7.3 FL (7.4-10.4); MONOCYTES # (AUTO) 0.9 X10'3 (0-0.9); NEUTROPHILS # (AUTO) 7.6 X10'3 (1.8-7.7); NEUTROPHILS % (AUTO) 78.3 % (42-75); PLATELET COUNT 179 X10'3 (140-440); RED BLOOD COUNT 3.67 X10'6 (4.70-6.10); RED CELL DISTRIBUTION WIDTH 14.5 % (11.5-14.5); WHITE BLOOD COUNT 9.7 X10'3 (4.5-11.0)
[2024-11-13 07:23] LABS: PROTHROMBIN TIME 10.4 SECONDS (9.0-12.0)
[2024-11-13 07:27] LABS: ALANINE AMINOTRANSFERASE 56 U/L (12-78); ALBUMIN 3.2 G/DL (3.4-5.0); ALBUMIN/GLOBULIN RATIO 1.1 (1.1-1.5); ALKALINE PHOSPHATASE 62 IU/L (46-116); AMYLASE 17 U/L (25-115); ANION GAP 9 (8-16); ASPARTATE AMINO TRANSFERASE 31 U/L (10-37); BILIRUBIN,TOTAL 0.9 MG/DL (0.1-1.0); BLOOD UREA NITROGEN 13 MG/DL (7-18); BUN/CREATININE RATIO 12.6 (10.0-20.0); CALCIUM 8.4 MG/DL (8.5-10.1); CHLORIDE 102 MMOL/L (99-107); CREATININE 1.03 MG/DL (0.60-1.10); GLUCOSE 100 MG/DL (70-104); LIPASE 14 U/L (16-77); PHOSPHORUS 3.2 MG/DL (2.3-4.5); POTASSIUM 3.7 MMOL/L (3.5-5.1); SODIUM 138 MMOL/L (135-145); TOTAL CARBON DIOXIDE 27.5 MMOL/L (24-32); eCRCL 61 ML/MIN; eGFR 69 ML/MIN
[2024-11-13 07:56] LABS: TOTAL CELLS COUNTED 100
[2024-11-13 07:57] LABS: POLYCHROMASIA 1+
[2024-11-13 07:58] LABS: PLATELET ESTIMATE NORMAL
[2024-11-13] MEDS: lactose-reduced food (Ensure Enlive) - 237ml bottle PO SCH (13:00)
--- NOTE | 2024-11-13 15:25 | DISCHARGE SUMMARY-Residence ---
Discharge Summary Providers to CC Resident Creating Document: AUSTIN MOSHANNAN Carney, RES ~ Discharge Summary Admission Diagnosis: Small bowel obstruction Hospital Course DATE OF ADMISSION: 11/08/2024 DATE OF DISCHARGE: 11/13/2024 Discharge Diagnosis\Comment: Partial small-bowel obstruction Alcohol use disorder Macrocytic anemia COPD not in exacerbation Prerenal Acute kidney injury likely secondary to dehydration-resolved CHF with preserved ejection fraction, not in exacerbation Operations\Procedures: None Consultants: Surgeon, Dr. Denson. Complications: None Condition on DC: Stable Continued Medications: Albuterol Sulfate (Proventil Hfa) 6.7 Gm Hfa.aer.ad 2 PUFFS INH Q6H, #1 INHALER Albuterol Sulfate (Albuterol Sulfate) 2.5 Mg/3 Ml Vial.neb 1 VIAL NEB Q4HPRN PRN for wheezing, #30 VIAL 1 Refill Cyanocobalamin* (Vitamin B-12*) 500 Mcg Tablet 1 TAB PO DAILY for 30 Days, #30 TAB Fluticasone Propion/Salmeterol (Fluticasone-Salmeterol 500-50) 500 Mcg-50 Mcg/Dose Blst.w.dev 1 PUFFS INH Q12H for 30 Days, #60 EA 0 Refills Furosemide* (Lasix*) 20 Mg Tablet 1 TAB PO BID for 30 Days, #60 TAB Guaifenesin (Mucinex) 600 Mg Tablet.sa 1200 MG PO Q12H, #20 TAB.SR Ipratropium/Albuterol Sulfate (IPRAT-ALBUT 0.5-3(2.5) MG/3 ML nebule) 0.5 Mg-3 Mg (2.5 Mg Base)/3 Ml Ampul.neb 1 VIAL NEB Q6H PRN for SOB or wheezing for 30 Days, #1 INHALER 0 Refills Lactobacillus Rhamnosus (Culturelle) 10 Billion Cell Capsule 26913 MMU PO BID, #30 CAP Metoclopramide Hcl* (Reglan*) 5 Mg Tablet 1 TAB PO Q6H, #20 TAB Mometasone/Formoterol (Dulera 200 Mcg/5 Mcg Inhaler) 13 Gm Hfa.aer.ad 2 PUFFS INH Q12H for 30 Days, #13 GM Multivitamin with Folic Acid (Thera Tablet) 400 Mcg Tablet 1 EACH PO Q24H, #30 TAB Prednisone (Prednisone) 10 Mg Tablet 0 PO DAILY, #42 TAB Take 4 tabs daily x4 days, then 3 daily x4 days 2 daily x4 days 1 daily x4 days 1/2 daily x4 days then STOP Tamsulosin Hcl (Flomax) 0.4 Mg Cap.sr.24h 2 CAP PO HS, CAP.SR Temazepam (Restoril) 15 Mg Capsule 1 CAP PO HSPRN PRN for sleep for 30 Days, #30 CAP 0 Refills Umeclidinium Brm/Vilanterol Tr (Anoro Ellipta 62.5-25 Mcg INH) 62.5 Mcg-25 Mcg/Actuation Disk.w.dev 1 PUFFS INH DAILY for 30 Days, #1 EA 0 Refills Discharge Summary: HPI: 83 years old male with history of COPD, CHF with preserved ejection fraction,, CKD, chronic alcohol use disorder presented to the ED with multiple nausea vomiting. The vomiting started yesterday and it was intractable containing food and nonbloody. Patient also reported abdominal bloating and distention however he denied abdominal pain. He reported had one time bowel movement yesterday which was small and loose. Patient was admitted in our hospital to three days ago with COPD exacerbation and CHF with preserved ejection fraction. Hospital course: 83-year-old male patient came to the hospital with chief complaint of nausea and vomiting. The patient was admitted with small-bowel obstruction, the patient was placed on NG tube and bowel rest was started. Dr. Denson, surgeon was consulted who did recommend continue NG tube and bowel rest due to high-risk candidate for surgery. The patient remained with NG tube for three days, the patient started reporting releasing of gases upon the 2nd day. The patient reported one bowel movement on 11/13/2024, tolerating diet. The surgeon cleared the patient. The patient remained hemodynamically stable. The patient will be discharged home. Discharge course: The patient remained hemodynamically stable. The patient will be discharged with the following instructions: Come back to the Emergency department or call 911 if severe chest pain, abdominal pain, constipation, shortness of breath is evidenced. Continue your home medications. Encouraged walking to help with digestion. High fiber diet. Follow up with your primary care physician peterson 2 weeks. Vital Signs Date Time Temp Pulse Resp B/P (MAP) Pulse Ox O2 Delivery O2 Flow Rate FiO2 11/13/24 12:52 70 16 Room Air 0.0 11/13/24 12:04 89 21 11/12/24 22:00 98.1 120/73 (89) Physical exam: General: Well alert, well oriented, not confused, not agitated, not in acute distress, well cooperated during the physical. HEENT: Conjunctive are pink, sclerae clear, no icterus, pupil is equal in both sides, reactive to light, no ear discharge, no pharyngeal erythema or an edema. Neck: Supple, no JVD, no lymphadenopathy and thyromegaly. Chest: Diminished air entry bilaterally, decreased wheezing bilaterally, p resence of rhonchus bilaterally. 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 Central Nervous System: No focal neurological deficits, no motor or sensory weakness in all 4 extremities, could move all 4 extremities, 2+ deep tendon reflexes, negative Babinski. Musculoskeletal: No other joint swelling, deformities, inflammations, and no scoliosis and back tenderness Skin: Warm and dry. Laboratory Tests Test 11/11/24 15:28 11/11/24 19:45 11/12/24 02:56 11/12/24 04:59 Glucometer 141 mg/dl 155 mg/dl 112 mg/dl White Blood Count 8.1 X10'3 Red Blood Count 3.54 X10'6 Hemoglobin 12.8 g/dl Hematocrit 37.3 % Mean Corpuscular Volume 105.3 FL Mean Corpuscular Hemoglobin 36.1 PG Mean Corpuscular Hemoglobin Concent 34.3 g/dL Red Cell Distribution Width 14.5 % Platelet Count 158 X10'3 Mean Platelet Volume 7.2 FL Neutrophils (%) (Auto) 78.7 % Lymphocytes (%) (Auto) 10.7 % Monocytes (%) (Auto) 9.9 % Eosinophils (%) (Auto) 0.5 % Basophils (%) (Auto) 0.2 % Neutrophils # (Auto) 6.4 X10'3 Lymphocytes # (Auto) 0.9 X10'3 Monocytes # (Auto) 0.8 X10'3 Eosinophils # (Auto) 0.0 X10'3 Basophils # (Auto) 0.0 X10'3 CBC Comment Prothrombin Time 10.3 SECONDS INR International Normalized Ratio 1.0 INR Coagulation Comments Sodium Level 139 MMOL/L Potassium Level 3.5 MMOL/L Chloride Level 104 MMOL/L Carbon Dioxide Level 27.7 MMOL/L Anion Gap 7 Blood Urea Nitrogen 13 MG/DL Creatinine 0.93 MG/DL Estimated GFR/1.73 m2 78 ML/MIN BUN/Creatinine Ratio 14.0 Glucose Level 105 MG/DL Calcium Level 8.2 MG/DL Phosphorus Level 2.7 MG/DL Magnesium Level 2.1 MG/DL Total Bilirubin 0.8 MG/DL Aspartate Amino Transf (AST/SGOT) 20 U/L Alanine Aminotransferase (ALT/SGPT) 37 U/L Alkaline Phosphatase 51 IU/L Total Protein 5.6 G/DL Albumin 2.9 G/DL Globulin 2.7 G/DL Albumin/Globulin Ratio 1.1 Amylase Level 17 U/L Lipase 15 U/L Chemistry Comments Test 11/12/24 07:34 11/12/24 12:20 11/12/24 14:23 11/12/24 17:11 Glucometer 101 mg/dl 131 mg/dl 181 mg/dl 132 mg/dl Test 11/12/24 20:17 11/13/24 07:00 11/13/24 07:20 Glucometer 129 mg/dl 104 mg/dl White Blood Count 9.7 X10'3 Red Blood Count 3.67 X10'6 Hemoglobin 13.2 g/dl Hematocrit 38.6 % Mean Corpuscular Volume 105.1 FL Mean Corpuscular Hemoglobin 36.0 PG Mean Corpuscular Hemoglobin Concent 34.3 g/dL Red Cell Distribution Width 14.5 % Platelet Count 179 X10'3 Mean Platelet Volume 7.3 FL Neutrophils (%) (Auto) 78.3 % Lymphocytes (%) (Auto) 11.8 % Monocytes (%) (Auto) 9.0 % Eosinophils (%) (Auto) 0.5 % Basophils (%) (Auto) 0.4 % Neutrophils # (Auto) 7.6 X10'3 Lymphocytes # (Auto) 1.1 X10'3 Monocytes # (Auto) 0.9 X10'3 Eosinophils # (Auto) 0.1 X10'3 Basophils # (Auto) 0.0 X10'3 CBC Comment Differential Total Cells Counted 100 Neutrophils % (Manual) 76.0 % Band Neutrophils % 2.0 % Lymphocytes % (Manual) 14.0 % Monocytes % (Manual) 8.0 % Platelet Estimate Normal Red Blood Cell Morphology Perf Polychromasia 1+ Basophilic Stippling Macrocytosis 1+ Prothrombin Time 10.4 SECONDS INR International Normalized Ratio 1.0 INR Coagulation Comments Sodium Level 138 MMOL/L Potassium Level 3.7 MMOL/L Chloride Level 102 MMOL/L Carbon Dioxide Level 27.5 MMOL/L Anion Gap 9 Blood Urea Nitrogen 13 MG/DL Creatinine 1.03 MG/DL Estimated GFR/1.73 m2 69 ML/MIN BUN/Creatinine Ratio 12.6 Glucose Level 100 MG/DL Calcium Level 8.4 MG/DL Phosphorus Level 3.2 MG/DL Total Bilirubin 0.9 MG/DL Aspartate Amino Transf (AST/SGOT) 31 U/L Alanine Aminotransferase (ALT/SGPT) 56 U/L Alkaline Phosphatase 62 IU/L Total Protein 6.0 G/DL Albumin 3.2 G/DL Globulin 2.8 G/DL Albumin/Globulin Ratio 1.1 Amylase Level 17 U/L Lipase 14 U/L Chemistry Comments *Problems/Diagnosis: (1) Small bowel obstruction Status: Resolved Total Time Spent on D/C: > 30 Minutes Date of Service: Nov 13, 2024 Billing Provider: ROMY CRABTREE MD Common Visit Codes: [id number] DISCH DAY >30min SHANNAN HARRIS, RES Nov 13, 2024 15:25 ROMY CRABTREE MD Nov 13, 2024 21:15
== END 2024-11-13 19:15 | disposition home or self-care (01) | DRG 388 ==
LOC: ER 00:42 → ED HOLD 04:19 → EDBEDREQ 05:10 → ORTHO 4S 05:41
PROVIDERS: ADMIT Internal Medicine Critical Care Medicine; ATTEND Internal Medicine
PROC: 0D9670Z Drainage of Stomach with Drainage Device, Via Natural or Artificial Opening (ICD-10-PCS; principal; 2024-11-08)
PROC: BW211ZZ Computerized Tomography (CT Scan) of Abdomen and Pelvis using Low Osmolar Contrast (ICD-10-PCS; 2024-11-08)
PROC: BW211ZZ Computerized Tomography (CT Scan) of Abdomen and Pelvis using Low Osmolar Contrast (ICD-10-PCS; 2024-11-09)
DX: K56.600 Partial intestinal obstruction, unspecified as to cause (principal); J18.9 Pneumonia, unspecified organism; N17.9 Acute kidney failure, unspecified; I50.32 Chronic diastolic (congestive) heart failure; E86.0 Dehydration; N18.9 Chronic kidney disease, unspecified; N40.0 Benign prostatic hyperplasia without lower urinary tract symptoms; F15.90 Other stimulant use, unspecified, uncomplicated; D53.9 Nutritional anemia, unspecified; Z66 Do not resuscitate; K57.30 Diverticulosis of large intestine without perforation or abscess without bleeding; Z79.899 Other long term (current) drug therapy
CPT/HCPCS: 36415; 43762; 71045; 74018; 74177; 80053; 81003; 82150; 82570; 82948; 83690; 83735; 83930; 83935; 84100; 84132; 84156; 84300; 84484; 84540; 85007; 85025; 85610; 85730; 87081; 87207; 93005; 94640; 94760; 96361; 96374; 97116; 97161; 97530; 99285; A4615; A4620; A6250; G0378; J1815; J2405; J2470; J2765; J2919; J3411; J3490; J7030; J7040; J7070; Q9963; Q9967